=== PATIENT | male | born 1980 | race Caucasian/White ===

== ENCOUNTER → 2019-05-23 15:37 | Outpatient (ROUT) | payer OTHER, MEDICAID, SELFPAY ==
[2019-05-23 16:03] LABS: Add Manual Diff / Slide Review NO; Basophils Absolute Auto 100 /uL (0-100); Basophils Percent Auto 0.6 % (0-2); Eosinophils Absolute Auto 300 /uL (0-450); Eosinophils Percent Auto 2.8 % (2-4); Hematocrit 47.3 % (41-53); Hemoglobin 16.5 g/dL (13.5-17.5); Lymphocytes Absolute Auto 2000 /uL (1100-4500); Lymphocytes Percent Auto 18.7 % (25-40); Mean Corpuscular HGB Conc 34.9 % (30-36); Mean Corpuscular Hemoglobin 33.7 PG (26-34); Mean Corpuscular Volume 96.7 fL (80-100); Monocytes Absolute Auto 500 /uL (0-900); Monocytes Percent Auto 4.9 % (3-14); Neutrophils Absolute Auto 7800 /uL (1500-7000); Platelet Count 242 X10^3/uL (150-400); Red Blood Cell Count 4.89 X10^6/uL (4.5-5.9); Red Cell Distribution Width 14.3 % (11.6-14.8); White Blood Cell Count 10.7 X10^3/uL (4.5-11.0)
[2019-05-23 16:20] LABS: Lithium 0.8 mmol/L (0.6-1.2)
[2019-05-23 16:21] LABS: Alanine Aminotransferase 52 IU/L (21-72); Albumin 4.4 g/dL (3.5-5.0); Albumin Globulin Ratio 1.6 (1.0-2.8); Alkaline Phosphatase 73 U/L (38-126); Aspartate Aminotransferase 49 IU/L (17-59); Bilirubin Total 1.4 mg/dL (0.2-1.3); Blood Urea Nitrogen 9 mg/dL (9-20); Calcium 9.2 mg/dL (8.4-10.2); Carbon Dioxide 26 mmol/L (22-32); Chloride 103 mmol/L (98-107); Cholesterol 179 mg/dL (140-199); Estimated Glomerular Filt Rate > 60.0 mL/min (>60); Globulin 2.8 g/dL (1.7-4.1); Glucose 114 mg/dL (70-100); HDL Cholesterol 34 mg/dL (40-60); HEMOLYSIS < 15 (0-50); LDL Cholesterol Calculated 94 mg/dL (<100); Potassium 3.4 mmol/L (3.4-5.1); Sodium 140 mmol/L (137-145); Total Protein 7.2 g/dL (6.3-8.2); Triglycerides 257 mg/dL (35-150)
== END ==
PROVIDERS: Family Provider Internal Medicine; Visit Provider Internal Medicine
DX: Z00.00 Encounter for general adult medical examination without abnormal findings (principal); F31.9 Bipolar disorder, unspecified
CPT/HCPCS: 80053; 80061; 80178; 84443; 85025

== ENCOUNTER 2020-12-10 08:12 | Emergency (ER) | payer OTHER, MEDICAID, SELFPAY ==
[2020-12-10 08:29] VITALS: BP 171/103; PULSE 118; RESP 20; TEMP 36.7; O2SAT 96
--- NOTE | 2020-12-10 08:46 | ED_ITS ---
HPI - Extremity Injury (Lower) General Chief Complaint: Extremity Injury, Lower Stated Complaint: right foot swelling x7days Time Seen by Provider: 12/10/20 08:20 Source: patient Mode of arrival: Ambulatory Limitations: no limitations History of Present Illness HPI Narrative: Patient is a 40-year-old male here for evaluation of right great toe redness and discomfort and swelling. He states that it started approxi mately 1 week ago. He feels it is potentially somewhat better than when initially started but is certainly not back to normal. He denies any specific trauma. No fevers. Has tried some anti-inflammatories and icing it. Has never had history of gout. Related Data Previous Rx's Medication Instructions Recorded cephalexin 500 mg PO BID 7 Days #14 cap 12/10/20 Allergies Allergy/AdvReac Type Severity Reaction Status Date / Time Penicillins Allergy Verified 12/10/20 08:37 Review of Systems Constitutional Constitutional: Denies fever(s) and Denies headache(s) Eyes Eyes: Denies blurry vision ENT Ears, Nose, Mouth, and Throat: Denies headache(s) Cardiovascular Cardiovascular: Denies chest pain and Denies dyspnea Respiratory Respiratory: Denies dyspnea Gastrointestinal Gastrointestinal: Reports abdominal pain, Denies nausea and Denies vomiting Genitourinary Genitourinary: Denies dysuria Genitourinary: Denies dysuria Musculoskeletal Musculoskeletal: Denies tingling Comments: Right great toe pain Integumentary/Breasts Comments: Redness right great toe Neurologic Neurologic: Denies behavioral changes, Denies headache(s) and Denies tingling Psychiatric Psychiatric: Denies behavioral changes Hematologic/Lymphatic On Anticoagulants: No Allergic/Immunologic Allergic/Immunologic: Denies urticaria Patient History Medical History Patient denies medical problems Social History Smoking Status: Never smoker Smoking Status: Never smoker alcohol intake frequency: 3 or more drinks per day Alcohol type: beer Substance Use Type: marijuana Exam Initial Vital Signs Initial Vital Signs: Vital Signs Temperature 98.0 F 12/10/20 08:29 Pulse Rate 118 H 12/10/20 08:29 Respiratory Rate 20 12/10/20 08:29 Blood Pressure 171/103 H 12/10/20 08:29 Pulse Oximetry 96 12/10/20 08:29 Const General: cooperative and healthy appearing Limitations: mental status not altered HENMT Head: normal to inspection and normocephalic Resp Effort & Inspection: normal respiratory effort Auscultation: clear to auscultation bilaterally Cardio Rate: regular rate Rhythm: regular rhythm Pulses: dorsalis pedis present on the right GI Inspection: non-distended Palpation: soft Skin Other: Redness on the dorsum of the foot encompassing the MTP joint of the right great toe extending to the IP joint and also extending to the midfoot. Neuro General: patient alert and patient awake Cognition: normal cognition Speech: speech normal Extrem General: capillary refill normal Other: Does have tenderness to movement of the MTP joint of the right great toe and also of the 2nd toe. Course Orders Ordered: ED Orders 12/10/20 08:48 XR toe RT min 2V Stat 12/10/20 09:16 C-Reactive Protein Quant Stat Complete Blood Count AUTO DIFF Stat Comprehensive Metabolic Panel Stat Erythrocyte Sedimentation Rate Stat Uric Acid Stat Vital Signs Vital signs: Vital Signs - 8 hr 12/10/20 08:29 Temperature 98.0 F Pulse Rate 118 H Respiratory Rate 20 Blood Pressure 171/103 H Pulse Oximetry 96 MDM - Extremity Injury (Lower) Lab Data Attestation: I reviewed the patient's lab results. Result diagrams: 12/10/20 09:16 12/10/20 09:16 Labs: Lab Results 12/10/20 12/10/20 12/10/20 Range/Units 09:16 09:16 09:16 WBC 12.2 H (4.5-11.0) X10^3/uL RBC 4.87 (4.5-5.9) X10^6/uL Hgb 16.6 (13.5-17.5) g/dL Hct 47.1 (41-53) % MCV 96.8 (80-100) fL MCH 34.1 H (26-34) PG MCHC 35.2 (30-36) % RDW 13.4 (11.6-14.8) % Plt Count 272 (150-400) X10^3/uL Neut % (Auto) 77.5 H (50-75) % Lymph % (Auto) 14.0 L (25-40) % [place] % (Auto) 4.7 (3-14) % Eos % (Auto) 3.0 (2-4) % Baso % (Auto) 0.8 (0-2) % Neut # (Auto) 9500 H (7694-2084) /uL Lymph # (Auto) 1700 (6505-2949) /uL [place] # (Auto) 600 (0-900) /uL Eos # (Auto) 400 (0-450) /uL Baso # (Auto) 100 (0-100) /uL ESR 41 H (0-15) MM/HR Sodium 138 (137-145) mmol/L Potassium 3.2 L (3.4-5.1) mmol/L Chloride 102 (98-107) mmol/L Carbon Dioxide 21 L (22-32) mmol/L BUN 4 L (9-20) mg/dL Creatinine 0.72 (0.66-1.25) mg/dL Estimated GFR > 60.0 (>60) mL/min BUN/Creatinine Ratio 5.6 L (6-22) Glucose 166 H (70-100) mg/dL Uric Acid 8.3 Cancelled (3.5-8.5) mg/dL Calcium 8.8 (8.4-10.2) mg/dL Total Bilirubin 0.7 (0.2-1.3) mg/dL AST 51 (17-59) IU/L ALT 44 (<50) IU/L Alkaline Phosphatase 70 (38-126) U/L C-Reactive Protein 3.0 H (<1.0) mg/dL Total Protein 7.6 (6.3-8.2) g/dL Albumin 4.4 (3.5-5.0) g/dL Globulin 3.2 (1.7-4.1) g/dL Albumin/Globulin Ratio 1.4 (1.0-2.8) Imaging Data Extremity x-ray #1: Radiologist's Impression: [address] [id number] ReportSigned Patient: Raman Anderson [facility]#: [id number]: 1980Acct:[id number]/Sex: 40 / MDate of Service: 12/10/20Loc: E DAccession Number: [id number] Procedure: XR toe RT min 2V Ordering Provider: Kenrick Moore D.O. PROCEDURE: XR TOE RT MIN 2V INDICATIONS: R great toe MTP redness TECHNIQUE: 3 views of the great toe(s) acquired. COMPARISON: None. FINDINGS: Bones: No fractures or dislocations. No suspicious bony lesions. Age- appropriate bony degenerative changes are seen. Incidental note is made of an accessory ossicle, an os tibiale externum. Soft tissues: No suspicious soft tissue densities. IMPRESSION: No significant bony abnormality can be seen to suggest osteomyelitis. If there is strong suspicion for developing osteomyelitis, please consider a dedicated MRI without and with contrast for further evaluation (assuming that there is no contraindication to MRI). Dictated by: Demario Rivas M.D. on 12/10/2020 at 8:16 Approved by: Demario Rivas M.D. on 12/10/2020 at 8:18 MDM Narrative Medical decision making narrative: Patient is nontoxic appearing. He is neurov ascularly intact. Has redness that is isolated to the medial dorsum of his left foot. It is warm to the touch. He has never had gout in the past. His uric acid is normal. His x-ray shows no signs of fractures. I do have low suspicion of a septic joint given his presentation today. Given his normal uric acid and lack of trauma this does leave a higher concern for cellulitis. The skin over t op the area of the being read shows no signs of abscess. He was tachycardic and does have a leukocytosis which could be secondary to gout or cellulitis however again he is very nontoxic appearing and is tolerating oral intake. The redness was outlined. Will place him on antibiotics. He was given strict return precautions. He expressed understanding and agreement. Discharge Plan Departure Patient Disposition: Home Clinical Impression: Cellulitis Instructions: DI for Cellulitis -- Adult Activity Restrictions/Additional Instructions: Given your labs today have a higher suspicion for a skin infection called cellulitis rather than gout. Because of this I think we have to start you on a ntibiotics. A prescription was sent to the pharmacy of your choice. You can shower like normal. Can take anti-inflammatories for discomfort. Contact your primary provider for follow-up. Return to the emergency department for any new or worsening symptoms Prescriptions: New cephalexin 500 mg capsule 500 mg PO BID 7 Days Qty: 14 RF: 0 Referrals: Adrian Pedroza MD [Primary Care Provider] -
[2020-12-10 09:33] LABS: Add Manual Diff / Slide Review NO; Basophils Absolute Auto 100 /uL (0-100); Basophils Percent Auto 0.8 % (0-2); Eosinophils Absolute Auto 400 /uL (0-450); Hematocrit 47.1 % (41-53); Hemoglobin 16.6 g/dL (13.5-17.5); Lymphocytes Absolute Auto 1700 /uL (1100-4500); Mean Corpuscular HGB Conc 35.2 % (30-36); Mean Corpuscular Hemoglobin 34.1 PG (26-34); Mean Corpuscular Volume 96.8 fL (80-100); Monocytes Absolute Auto 600 /uL (0-900); Monocytes Percent Auto 4.7 % (3-14); Neutrophils Absolute Auto 9500 /uL (1500-7000); Neutrophils Percent Auto 77.5 % (50-75); Platelet Count 272 X10^3/uL (150-400); Red Blood Cell Count 4.87 X10^6/uL (4.5-5.9); Red Cell Distribution Width 13.4 % (11.6-14.8); White Blood Cell Count 12.2 X10^3/uL (4.5-11.0)
[2020-12-10 09:39] LABS: Alanine Aminotransferase 44 IU/L (<50); Albumin 4.4 g/dL (3.5-5.0); Albumin Globulin Ratio 1.4 (1.0-2.8); Alkaline Phosphatase 70 U/L (38-126); Aspartate Aminotransferase 51 IU/L (17-59); BUN Creatinine Ratio 5.6 (6-22); Bilirubin Total 0.7 mg/dL (0.2-1.3); Blood Urea Nitrogen 4 mg/dL (9-20); Calcium 8.8 mg/dL (8.4-10.2); Carbon Dioxide 21 mmol/L (22-32); Chloride 102 mmol/L (98-107); Estimated Glomerular Filt Rate > 60.0 mL/min (>60); Globulin 3.2 g/dL (1.7-4.1); Glucose 166 mg/dL (70-100); HEMOLYSIS 26 (0-50); Potassium 3.2 mmol/L (3.4-5.1); Sodium 138 mmol/L (137-145); Total Protein 7.6 g/dL (6.3-8.2); Uric Acid 8.3 mg/dL (3.5-8.5)
[2020-12-10 09:50] LABS: Erythrocyte Sedimentation Rate 41 MM/HR (0-15)
[2020-12-10 10:34] VITALS: BP 158/100; PULSE 92; RESP 14; O2SAT 98
== END 2020-12-10 10:38 | disposition home or self-care (01) ==
PROVIDERS: Emergency Provider Emergency Medicine; Family Provider Internal Medicine; PCP Internal Medicine
DX: L03.031 Cellulitis of right toe (principal); R10.9 Unspecified abdominal pain
CPT/HCPCS: 36415; 73660; 80053; 84550; 85025; 85651; 86140; 99283; 99284

== ENCOUNTER → 2022-09-29 11:21 | Outpatient (CLI) | payer OTHER, MEDICAID, SELFPAY ==
[2022-09-29 12:44] LABS: Hematocrit 42.7 % (41-53); Mean Corpuscular HGB Conc 35.1 % (30-36); Mean Corpuscular Hemoglobin 34.8 PG (26-34); Mean Corpuscular Volume 99.1 fL (80-100); Platelet Count 282 X10^3/uL (150-400); Red Blood Cell Count 4.31 X10^6/uL (4.5-5.9); Red Cell Distribution Width 13.8 % (11.6-14.8)
[2022-09-29 13:38] LABS: Alanine Aminotransferase 41 IU/L (<50); Albumin 4.4 g/dL (3.5-5.0); Albumin Globulin Ratio 1.1 (1.0-2.8); Alkaline Phosphatase 91 U/L (38-126); Aspartate Aminotransferase 91 IU/L (17-59); BUN Creatinine Ratio 8.2 (6-22); Bilirubin Total 1.4 mg/dL (0.2-1.3); Blood Urea Nitrogen 6 mg/dL (9-20); Carbon Dioxide 20 mmol/L (22-32); Chloride 92 mmol/L (98-107); Cholesterol 238 mg/dL (140-199); Estimated Glomerular Filt Rate > 60 mL/min (>60); Glucose 391 mg/dL (70-100); HDL Cholesterol 34 mg/dL (40-60); HEMOLYSIS < 15 (0-50); LDL Cholesterol Calculated 139 mg/dL (<100); Potassium 2.9 mmol/L (3.4-5.1); Sodium 133 mmol/L (137-145); Total Protein 8.4 g/dL (6.3-8.2); Triglycerides 323 mg/dL (35-150)
[2022-09-29 13:44] LABS: Lithium < 0.2 mmol/L (0.6-1.2)
[2022-09-29 14:06] LABS: TSH w/ Reflex to FT4 3.51 uIU/mL (0.47-4.68)
[2022-09-29 16:29] LABS: Hemoglobin A1C% w Est Avg Glu 8.4 % (4.0-6.0)
== END ==
PROVIDERS: Family Provider Internal Medicine; PCP Internal Medicine; Referring Provider Internal Medicine; Visit Provider Internal Medicine
DX: Z00.00 Encounter for general adult medical examination without abnormal findings (principal); F31.9 Bipolar disorder, unspecified; I10 Essential (primary) hypertension; R73.9 Hyperglycemia, unspecified
CPT/HCPCS: 36415; 80053; 80061; 80178; 83036; 84443; 85027

== ENCOUNTER → 2022-12-30 09:23 | Outpatient (CLI) | payer OTHER, MEDICAID, SELFPAY ==
[2022-12-30 10:24] LABS: Alanine Aminotransferase 29 IU/L (<50); Albumin 3.9 g/dL (3.5-5.0); Albumin Globulin Ratio 1.1 (1.0-2.8); Alkaline Phosphatase 114 U/L (38-126); Amylase 48 U/L (30-110); Aspartate Aminotransferase 104 IU/L (17-59); BUN Creatinine Ratio 5.9 (6-22); Bilirubin Total 1.9 mg/dL (0.2-1.3); Blood Urea Nitrogen 4 mg/dL (9-20); Calcium 7.6 mg/dL (8.4-10.2); Carbon Dioxide 29 mmol/L (22-32); Chloride 95 mmol/L (98-107); Estimated Glomerular Filt Rate > 60 mL/min (>60); Globulin 3.7 g/dL (1.7-4.1); Glucose 151 mg/dL (70-100); HEMOLYSIS < 15 (0-50); Lipase 272 U/L (23-300); Sodium 133 mmol/L (137-145); Total Protein 7.6 g/dL (6.3-8.2)
[2022-12-30 10:45] LABS: Potassium 2.6 mmol/L (3.4-5.1)
[2022-12-30 10:55] LABS: Hemoglobin 12.8 g/dL (13.5-17.5); Mean Corpuscular HGB Conc 35.5 % (30-36); Mean Corpuscular Hemoglobin 37.4 PG (26-34); Mean Corpuscular Volume 105.5 fL (80-100); Platelet Count 317 X10^3/uL (150-400); Red Blood Cell Count 3.41 X10^6/uL (4.5-5.9); White Blood Cell Count 11.7 X10^3/uL (4.5-11.0)
[2022-12-31 05:47] LABS: x Labcorp Estim. Avg Glu (eAG) 148 mg/dL (.); x Labcorp Hemoglobin A1c 6.8 % (4.8-5.6)
== END ==
PROVIDERS: Family Provider Internal Medicine; PCP Internal Medicine; Referring Provider Internal Medicine; Visit Provider Internal Medicine
DX: E11.69 Type 2 diabetes mellitus with other specified complication (principal); E78.5 Hyperlipidemia, unspecified; R10.9 Unspecified abdominal pain; R19.7 Diarrhea, unspecified
CPT/HCPCS: 36415; 80053; 82150; 83036; 83690; 85027

== ENCOUNTER → 2023-01-04 10:53 | Outpatient (CLI) | payer OTHER, MEDICAID, SELFPAY ==
--- NOTE | 2023-01-04 17:43 | DIAB.INIT ---
Initial Diabetes Education Assessment Name: Raman Anderson Date: 01/04/23 Time: -5882t Dx: Type II Diabetes Provider: Yovany Odenjay presents today for initial Dm visit. Newly diagnosed since September with HgA1c of 8.4% at the time. Down to 6.8% this month, likely r/t reported 20# weight loss as a result of n/v associated with ETOH use. Raman reports 9-18 servings of ETOH per day. States he has received IP care for ETOH in his 20s. He was then sober fro 15 years. Then picked up drinking with a girlfriend, who has since passed. States he has been drinking this way for about 6 years. Not eating much over the last several weeks due to n/v symptoms. Diet recall indicates one meal per day at most, usually salad or processed vegetarian option (veggie meat/frozen products). Sometimes a piece of cheese during the day. Does not feel confident that he can reduce ETOH intake without IP care. Plans to call [facility] as rec by provider. States he is not sure if he can make lifestyle changes to help with DM while managing ETOHism. 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 Provided appropriate educational handouts. Discussed the following topics: Reviewed A1c in brief and goal A1c Discussed small meal/snack ideas easy on the GI to help increase intake Options for protein shake to help with nutritional status Potential supplements to help with nutritional status: MVI, vit c, b vitamins Impact of ETOH on GI and nutritional status and neuropathy Plate Method Impact of ETOH on DM and BG Created SMART goals for patient self-care and success. Goals: Call [facility] Aim for at last 2 eating occurrences per day Check out protein shakes [facility]. Raman seems to need to manage his ETOHism before managing DM. He reports feeling unprepared to manage DM at this time due to ETOH intake. Plans to call for IP care this week. Provided my contact information and encouraged him to contact DM education for follow-up after managing ETOHism. Corrie Roberts RDN, [facility] Certified Diabetes Care and Spool Salvager P: [phone] Thank you for this referral
== END ==
PROVIDERS: Family Provider Internal Medicine; PCP Internal Medicine; Referring Provider Internal Medicine; Visit Provider Internal Medicine
DX: E11.9 Type 2 diabetes mellitus without complications (principal); E78.5 Hyperlipidemia, unspecified; Z71.3 Dietary counseling and surveillance
CPT/HCPCS: G0108

== ENCOUNTER 2023-06-07 12:14 | Emergency (ER) | payer OTHER, MEDICAID, SELFPAY ==
[2023-06-07 12:31] VITALS: BP 148/102; PULSE 96; RESP 16; TEMP 37.3; O2SAT 98; BMI 30.1
--- NOTE | 2023-06-07 13:36 | DI.RAD.S_ITS ---
PROCEDURE: XR CHEST 1V INDICATIONS: suspected sepsis TECHNIQUE: One view of the chest was acquired. COMPARISON: [facility], , CHEST 2 VIEW, 03/21/2017, 15:53. FINDINGS: Surgical changes and devices: None. Lungs and pleura: Lungs are clear. No pleural effusions or pneumothorax. Mediastinum: Mediastinal contours appear normal. Heart size is normal. Bones and chest wall: No suspicious bony lesions. Overlying soft tissues appear unremarkable. IMPRESSION: No acute cardiopulmonary process. Dictated by: Allen Fulton M.D. on 06/07/2023 at 14:17 Approved by: Allen Fulton M.D. on 06/07/2023 at 14:18
[2023-06-07 13:56] LABS: Add Manual Diff / Slide Review NO; Basophils Absolute Auto 100 /uL (0-100); Basophils Percent Auto 0.6 % (0-2); Eosinophils Absolute Auto 800 /uL (0-450); Eosinophils Percent Auto 6.3 % (2-4); Hematocrit 36.7 % (41-53); Hemoglobin 12.6 g/dL (13.5-17.5); Lymphocytes Absolute Auto 1500 /uL (1100-4500); Lymphocytes Percent Auto 12.2 % (25-40); Mean Corpuscular HGB Conc 34.2 % (30-36); Mean Corpuscular Hemoglobin 35.9 PG (26-34); Mean Corpuscular Volume 105.1 fL (80-100); Monocytes Absolute Auto 400 /uL (0-900); Monocytes Percent Auto 3.3 % (3-14); Neutrophils Absolute Auto 9600 /uL (1500-7000); Neutrophils Percent Auto 77.6 % (50-75); Platelet Count 391 X10^3/uL (150-400); Red Blood Cell Count 3.49 X10^6/uL (4.5-5.9); Red Cell Distribution Width 15.7 % (11.6-14.8); White Blood Cell Count 12.3 X10^3/uL (4.5-11.0)
[2023-06-07 14:07] LABS: INR 1.3 (0.9-1.3); Prothrombin Time 14.7 SECONDS (10.1-12.7)
[2023-06-07 14:08] VITALS: PULSE 102; O2SAT 98
[2023-06-07 14:11] VITALS: BP 151/95; PULSE 101; RESP 17; O2SAT 98
[2023-06-07 14:12] LABS: Alanine Aminotransferase 32 IU/L (<50); Albumin 4.5 g/dL (3.5-5.0); Alkaline Phosphatase 99 U/L (38-126); Aspartate Aminotransferase 46 IU/L (17-59); Bilirubin Total 1.1 mg/dL (0.2-1.3); Blood Urea Nitrogen 16 mg/dL (9-20); Calcium 10.3 mg/dL (8.4-10.2); Carbon Dioxide 22 mmol/L (22-32); Chloride 106 mmol/L (98-107); Estimated Glomerular Filt Rate > 60 mL/min (>60); Globulin 4.3 g/dL (1.7-4.1); Glucose 118 mg/dL (70-100); HEMOLYSIS 24 (0-50); Lipase 314 U/L (23-300); Sodium 137 mmol/L (137-145); Total Protein 8.8 g/dL (6.3-8.2)
[2023-06-07 14:13] LABS: Lactate (Lactic Acid) 0.7 mmol/L (0.7-2.1)
--- NOTE | 2023-06-07 14:23 | DI.US.S_ITS ---
PROCEDURE: US PERIPH VENOUS LOW EXTREM BI INDICATIONS: EDEMA TECHNIQUE: Real-time imaging, as well as color and pulse Doppler interrogation, were performed of the deep veins of both legs from the inguinal ligament to the popliteal fossa, with documentation of the visualized calf veins. COMPARISON: None. FINDINGS: Right: The common femoral, femoral, popliteal, and the visualized calf veins are normally compressible, and free of intraluminal thrombus. Color and pulse Doppler demonstrate normal phasic intravascular flow. There is normal augmentation response to distal compression maneuver. Left: The common femoral, femoral, popliteal, and the visualized calf veins are normally compressible, and free of intraluminal thrombus. Color and pulse Doppler demonstrate normal phasic intravascular flow. There is normal augmentation response to distal compression maneuver. IMPRESSION: No findings of deep venous thrombosis in either lower extremity. Dictated by: Garrett Clifton M.D. on 06/07/2023 at 15:41 Approved by: Garrett Clifton M.D. on 06/07/2023 at 15:41
[2023-06-07 14:24] LABS: PTT Partial Thromboplastin Tim 35 SECONDS (26-36)
--- NOTE | 2023-06-07 14:26 | ED.EXTPRO ---
HPI - Extremity Problem General Chief complaint: Extremity Problem,Nontraumatic Stated complaint: edema reappeared/feet swollen/red streaks on feet Time Seen by Provider: 06/07/23 13:54 Source: patient Mode of arrival: Ambulatory History of Present Illness HPI Narrative: 42 year old male with history of bipolar 1, alcohol use disorder (sober since 05/10/23), psoriasis prsents for swelling and burning in his bilateral feet. States that he was recently hospitalized at [facility] for an infected cyst on his L jaw. He states that this was lanced by an ENT doctor and he was discharged on antibiotics. The neck swelling is still present, but patient states it is much improved when when it started and he is taking his antibiotics. He is concerned because his feet sting and burn and there is trace swelling aroudn the ankles. He thinks it is neuropathy from alcohol use. He has had burning and stinging previously, but never this bad. Related Data Home Medications Medication Instructions Recorded Confirmed mirtazapine 45 mg tablet 45 mg PO BEDTIME 01/13/23 04/28/23 Previous Rx's Medication Instructions Recorded amlodipine 5 mg tablet 5 mg PO DAILY #90 tabs 05/26/22 clobetasol 0.05 % topical cream 1 applic topical BID #60 grams 05/26/22 metformin 500 mg tablet 500 mg PO BID #180 tabs 10/04/22 lithium carbonate 300 mg 600 mg (2 x 300 mg) PO BID #120 12/30/22 tablet,extended release tabs potassium chloride 10 mEq 20 meq (2 x 10 mEq) PO TID low 12/30/22 tablet,extended release potassium #18 tabs zolpidem 10 mg tablet 10 mg PO BEDTIME PRN insomnia #90 04/14/23 tabs dextroamphetamine-amphetamine 30 30 mg PO BID #60 tabs 04/28/23 mg tablet (Adderall) dextroamphetamine-amphetamine 30 30 mg PO BID #60 tabs 04/28/23 mg tablet (Adderall) dextroamphetamine-amphetamine 30 30 mg PO BID #60 tabs 04/28/23 mg tablet (Adderall) clonazepam 1 mg tablet 1 mg PO TID #90 tabs 05/11/23 gabapentin 300 mg capsule 300 mg PO TID #90 caps 06/07/23 Allergies Allergy/AdvReac Type Severity Reaction Status Date / Time Penicillins Allergy Verified 06/07/23 12:42 Review of Systems Review of Systems Narrative: Negative except as noted above Patient History Medical History ADD (attention 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) Alcohol use disorder Bipolar 1 disorder (~2001) Chronic insomnia DM type 2 with diabetic dyslipidemia Essential hypertension Generalized anxiety disorder Gout Obesity (BMI 30.0-34.9) Patient denies medical problems Plaque psoriasis (~2017) Social History Smoking Status: Former smoker Smoking Status: Former smoker alcohol intake frequency: 3 or more drinks per day Alcohol type: beer Substance Use Type: former substance user Exam Narrative Exam Narrative: Const: Awake, alert, appears chronically unwell, significantly older than stated age Eyes: PERRL, EOMI, conjunctiva normal ENT: Atraumatic, dentition normal, mucous membranes moist Cardiac: regular rate, regular rhythm RESP: unlabored, clear bilaterally, no wheezing GI: Atraumatic, soft, nontender, nondistended, no rebound, no guarding MSK: Atraumatic, full range of motion, pulses equal Skin: Warm, Dry, extensive psoriatic rash over legs, arms, face. No excessive warmth, no fluctuance Neuro: AO x3, CN II-XII grossly intact, moves all extremities, hyperalgesia dorsum of feet bilaterally Psych: affect normal, mood normal, not suicidal, not homicidal Initial Vital Signs Initial Vital Signs: Vital Signs Temperature 99.2 F 06/07/23 12:31 Pulse Rate 96 H 06/07/23 12:31 Respiratory Rate 16 06/07/23 12:31 Blood Pressure 148/102 H 06/07/23 12:31 Pulse Oximetry 98 06/07/23 12:31 Oxygen Delivery Method Room Air 06/07/23 12:31 Course Course Course Narrative: Chronically unwell appearing but not acutely toxic patient presenting for bilateral foot pain and swelling. There is trace nonpitting edema to his bilateral lower extremities, but no obvious swelling. He is extensive psoriatic rash on all of his extremities and this appears to extend to the feet as well. Patient's description of the pain as well as his history of chronic alcohol abuse is suggestive of alcoholic neuropathy. His abscess on the neck is still present, but per the patient is healing very well and is much improved from initial presentation to outside emergency department. Orders Ordered: Discontinued Medications Gabapentin (Gabapentin 300 Mg Capsule) 300 mg PO NOW ONE Stop: 06/07/23 15:52 Last Admin: 06/07/23 15:58 Dose: 300 mg Documented By: AMV Lorazepam (Lorazepam 0.5 Mg Tablet) 0.5 mg PO NOW ONE Stop: 06/07/23 15:52 Last Admin: 06/07/23 15:58 Dose: 0.5 mg Documented By: AMV Ondansetron HCl (Ondansetron 4 Mg/2 Ml Inj) 4 mg IV NOW PRN PRN Reason: Nausea And Vomiting Ondansetron HCl (Ondansetron 4 Mg Odt) 4 mg SL NOW PRN PRN Reason: Nausea And Vomiting Reevaluation(s) Reevaluation #1: Laboratory work is reviewed, mild leukocytosis, however he does have the abscess in his currently on antibiotics. Other lab work negative for significant abnormalities. Ultrasound imaging negative for DVT. Patient counseled on likely diagnosis, plan to discharge with gabapentin and close PCP follow up. Encouraged to continue his sobriety. ED return precautions discussed at bedside. Patient expressed understanding of the plan and is in agreement at this time. All questions answered at the time of discharge. Vital Signs Vital signs: Vital Signs - 8 hr 06/07/23 12:31 06/07/23 14:08 06/07/23 14:11 Temperature 99.2 F Pulse Rate 96 H 102 H 101 H Respiratory Rate 16 17 Blood Pressure 148/102 H Pulse Oximetry 98 98 98 Oxygen Delivery Method Room Air 06/07/23 14:11 06/07/23 14:30 06/07/23 14:30 Temperature Pulse Rate 99 H Respiratory Rate 21 Blood Pressure 151/95 H 149/89 H Pulse Oximetry 97 Oxygen Delivery Method 06/07/23 15:00 06/07/23 15:00 06/07/23 15:30 Temperature Pulse Rate 99 H 100 H Respiratory Rate 28 H Blood Pressure 161/106 H Pulse Oximetry 97 97 Oxygen Delivery Method 06/07/23 15:30 Temperature Pulse Rate Respiratory Rate Blood Pressure 190/110 H Pulse Oximetry Oxygen Delivery Method MDM - Extremity (Nontraumatic) Differential Diagnosis Differential diagnosis: Likely gout, lower extremity edema and deep vein thrombosis of lower extremity Lab Data 06/07/23 13:45 06/07/23 13:45 Labs: Lab Results 06/07/23 06/07/23 Range/Units 13:45 14:24 WBC 12.3 H (4.5-11.0) X10^3/uL RBC 3.49 L (4.5-5.9) X10^6/uL Hgb 12.6 L (13.5-17.5) g/dL Hct 36.7 L (41-53) % MCV 105.1 H (80-100) fL MCH 35.9 H (26-34) PG MCHC 34.2 (30-36) % RDW 15.7 H (11.6-14.8) % Plt Count 391 (150-400) X10^3/uL Neut % (Auto) 77.6 H (50-75) % Lymph % (Auto) 12.2 L (25-40) % [place] % (Auto) 3.3 (3-14) % Eos % (Auto) 6.3 H (2-4) % Baso % (Auto) 0.6 (0-2) % Neut # (Auto) 9600 H (8136-0316) /uL Lymph # (Auto) 1500 (7618-7396) /uL [place] # (Auto) 400 (0-900) /uL Eos # (Auto) 800 H (0-450) /uL Baso # (Auto) 100 (0-100) /uL PT 14.7 H (10.1-12.7) SECONDS INR 1.3 (0.9-1.3) APTT 35 (26-36) SECONDS Sodium 137 (137-145) mmol/L Potassium 4.0 (3.4-5.1) mmol/L Chloride 106 (98-107) mmol/L Carbon Dioxide 22 (22-32) mmol/L BUN 16 (9-20) mg/dL Creatinine 0.80 (0.66-1.25) mg/dL Estimated GFR > 60 (>60) mL/min BUN/Creatinine Ratio 20.0 (6-22) Glucose 118 H (70-100) mg/dL Lactate 0.7 (0.7-2.1) mmol/L Calcium 10.3 H (8.4-10.2) mg/dL Magnesium 2.0 (1.6-2.3) mg/dL Total Bilirubin 1.1 (0.2-1.3) mg/dL AST 46 (17-59) IU/L ALT 32 (<50) IU/L Alkaline Phosphatase 99 (38-126) U/L Total Protein 8.8 H (6.3-8.2) g/dL Albumin 4.5 (3.5-5.0) g/dL Globulin 4.3 H (1.7-4.1) g/dL Albumin/Globulin Ratio 1.0 (1.0-2.8) Lipase 314 H (23-300) U/L Procalcitonin 0.18 (<0.5) ng/mL Discharge Plan Departure Patient Disposition: Home Clinical Impression: Neuropathic pain of both feet Instructions: DI for Peripheral Neuropathy Activity Restrictions/Additional Instructions: KEEP UP THE GOOD WORK ON BECOMING SOBER! TAKE ALL OF YOUR ANTIBIOTICS PRESCRIBED. GABAPENTIN MAY HELP THE STINGING SENSATION YOU FEEL IN YOUR FEET. THIS IS LIKELY SECONDARY TO NEUROPATHY. I HIGHLY RECOMMEND FOLLOWING UP WITH YOUR PRIMARY CARE DOCTOR. Prescriptions: New gabapentin 300 mg capsule 300 mg PO TID Qty: 90 0RF No Action potassium chloride 10 mEq tablet extended release 20 meq PO TID Qty: 18 0RF Rx Instructions: Potassium chloride 10mEq 2 tablets TID x 3 days zolpidem 10 mg tablet 10 mg PO BEDTIME PRN (Reason: insomnia) Qty: 90 0RF clonazepam 1 mg tablet 1 mg PO TID Qty: 90 0RF metformin 500 mg tablet 500 mg PO BID Qty: 180 3RF amlodipine 5 mg tablet 5 mg PO DAILY Qty: 90 3RF clobetasol 0.05 % cream 1 applic topical BID Qty: 60 5RF lithium carbonate 300 mg tablet extended release 600 mg PO BID Qty: 120 5RF mirtazapine 45 mg tablet 45 mg PO BEDTIME dextroamphetamine-amphetamine [Adderall] 30 mg tablet 30 mg PO BID Qty: 60 0RF Rx Instructions: administer doses at least 4-6 hours apart dextroamphetamine-amphetamine [Adderall] 30 mg tablet 30 mg PO BID Qty: 60 0RF Rx Instructions: administer doses at least 4-6 hours apart dextroamphetamine-amphetamine [Adderall] 30 mg tablet 30 mg PO BID Qty: 60 0RF Rx Instructions: administer doses at least 4-6 hours apart Referrals: Adrian Pedroza MD [Primary Care Provider] - Stand Alone Forms: Patient Portal/API
[2023-06-07 14:29] LABS: Procalcitonin 0.18 ng/mL (<0.5)
[2023-06-07 14:30] VITALS: BP 149/89; PULSE 99; RESP 21; O2SAT 97
[2023-06-07 15:00] VITALS: BP 161/106; PULSE 99; O2SAT 97
[2023-06-07 15:30] VITALS: BP 190/110; PULSE 100; RESP 28; O2SAT 97
[2023-06-07] MEDS: LORazepam 0.5 MG TABLET PO (15:58)
[2023-06-07] MEDS: GABAPENTIN 300 MG CAPSULE PO (15:58)
== END 2023-06-07 16:14 | disposition home or self-care (01) ==
PROVIDERS: Emergency Provider Emergency Medicine; Family Provider Internal Medicine; PCP Internal Medicine
DX: G57.93 Unspecified mononeuropathy of bilateral lower limbs (principal); R79.89 Other specified abnormal findings of blood chemistry
CPT/HCPCS: 36415; 71045; 80053; 83605; 83690; 83735; 84145; 85025; 85610; 85730; 87040; 93005; 93970; 99284

== ENCOUNTER 2023-06-16 09:08 | Emergency (ER) | payer OTHER, MEDICAID, SELFPAY ==
[2023-06-16] VITALS (31 sets, daily range): BP systolic 137–163; BP diastolic 77–114; PULSE 85–118; RESP 16–27; TEMP 36.4–36.8; O2SAT 94–98; BMI 30.1
--- NOTE | 2023-06-16 10:02 | DI.RAD.S_ITS ---
PROCEDURE: XR CHEST 1V INDICATIONS: suspected sepsis TECHNIQUE: One view of the chest was acquired. COMPARISON: [facility], [place], XR CHEST 1V, 06/07/2023, 13:49. [facility], [place], CHEST 2 VIEW, 03/21/2017, 15:53. FINDINGS: Surgical changes and devices: None. Lungs and pleura: Lungs are clear. No pleural effusions or pneumothorax. Mediastinum: Mediastinal contours appear normal. Heart size is normal. Bones and chest wall: No suspicious bony lesions. Overlying soft tissues appear unremarkable. IMPRESSION: No acute cardiopulmonary process. Dictated by: Allen Fulton M.D. on 06/16/2023 at 10:21 Approved by: Allen Fulton M.D. on 06/16/2023 at 10:23
[2023-06-16] MEDS: SODIUM CHLORIDE 0.9% 1,000 ML 1000 ML IV ×2 (10:45→17:04)
[2023-06-16 10:53] LABS: INR 1.4 (0.9-1.3); Prothrombin Time 15.8 SECONDS (10.1-12.7)
[2023-06-16 10:55] LABS: Alanine Aminotransferase 23 IU/L (<50); Albumin 4.3 g/dL (3.5-5.0); Alkaline Phosphatase 112 U/L (38-126); Aspartate Aminotransferase 39 IU/L (17-59); BUN Creatinine Ratio 6.8 (6-22); Blood Urea Nitrogen 5 mg/dL (9-20); Calcium 9.6 mg/dL (8.4-10.2); Carbon Dioxide 28 mmol/L (22-32); Chloride 97 mmol/L (98-107); Estimated Glomerular Filt Rate > 60 mL/min (>60); Globulin 4.1 g/dL (1.7-4.1); Glucose 130 mg/dL (70-100); HEMOLYSIS < 15 (0-50); Lipase 201 U/L (23-300); PTT Partial Thromboplastin Tim 35 SECONDS (26-36); Sodium 135 mmol/L (137-145); Total Protein 8.4 g/dL (6.3-8.2)
[2023-06-16 11:02] LABS: Potassium 2.7 mmol/L (3.4-5.1)
[2023-06-16 11:07] LABS: Add Manual Diff / Slide Review NO; Basophils Absolute Auto 100 /uL (0-100); Basophils Percent Auto 1.1 % (0-2); Eosinophils Absolute Auto 200 /uL (0-450); Eosinophils Percent Auto 2.1 % (2-4); Hematocrit 42.9 % (41-53); Lymphocytes Absolute Auto 1600 /uL (1100-4500); Lymphocytes Percent Auto 13.1 % (25-40); Mean Corpuscular HGB Conc 34.8 % (30-36); Mean Corpuscular Hemoglobin 34.4 PG (26-34); Mean Corpuscular Volume 98.8 fL (80-100); Monocytes Absolute Auto 400 /uL (0-900); Monocytes Percent Auto 3.1 % (3-14); Neutrophils Absolute Auto 9600 /uL (1500-7000); Neutrophils Percent Auto 80.6 % (50-75); Platelet Count 296 X10^3/uL (150-400); Red Blood Cell Count 4.35 X10^6/uL (4.5-5.9); Red Cell Distribution Width 14.8 % (11.6-14.8); White Blood Cell Count 11.9 X10^3/uL (4.5-11.0)
[2023-06-16 11:12] LABS: Procalcitonin 0.12 ng/mL (<0.5)
--- NOTE | 2023-06-16 11:15 | PC.NURSE ---
Patient presents for bilateral leg pain which he believes is cellulitis due to history of cellulitis. Pt has psoriasis and redness on his legs. Pt does have a surgical incision on his left neck behind his ear, which was due to a surgical incision to drain an abscess on 06/02/23. He states his neck does not hurt him. Pt was prescribed antibiotics which he should have finished by now, but he still has a few that he hasent taken. He is a poor historian, has not been taking any daily medications the past week, is not sure what medications he is actually supposed to take, and was recently at alcohol rehab in [place] before his surgical abscess draining. Pt states he was transferred from alcohol rehab to the ER on 06/02 and his bed at the rehab facility had given his bed away. Pt reports drinking 3x 16oz malt liquors daily the past few days. Pt appears unwell and unkept. He was also surprised about his open surgical site behind his ear looking infected. Pt told me his lives in a house with his 11 year old son who is currently at school. I inquired where his son was during his alcohol rehab admission, patient responded that his son was staying with his grandparents.
--- NOTE | 2023-06-16 11:31 | ED_ITS ---
HPI - Skin/Abscess/Foreign Bdy General Chief complaint: Skin/Abscess/Foreign Body Stated complaint: celulitis in feet Time Seen by Provider: 06/16/23 11:20 Source: patient Mode of arrival: Ambulatory History of Present Illness HPI narrative: Patient for multiple complaints. Chiefly he has pain to both feet that has been ongoing for over a month. He was seen here June 07 for this. Diagnosed with neuropathy of the feet. He did see his primary care June 14, 2003 for follow up. No new treatment was done. Last night he noticed bilateral papular rash to the entire leg and feet. No history of syphilis or chancre. Patient has history of left mandible abscess incision drainage May 01 he states in [place]. He stayed there for 4 days and discharged home. He does not know any type of instructions that were given to him for wound care or why he had the surgery or what was the diagnosis. Patient is very poor historian. He does have psoriasis. He does not have 1 falling him for that he states. He uses a cream. No fever or chills Related Data Home Medications Medication Instructions Recorded Confirmed mirtazapine 45 mg tablet 45 mg PO BEDTIME 01/13/23 06/14/23 levothyroxine 50 mcg tablet 50 mcg PO DAILY 06/14/23 06/14/23 losartan 25 mg tablet 25 mg PO DAILY 06/14/23 06/14/23 spironolactone 50 mg tablet 50 mg PO DAILY 06/14/23 06/14/23 thiamine HCl (vitamin B1) 100 mg 100 mg PO DAILY 06/14/23 06/14/23 tablet trazodone 50 mg tablet 50 mg PO ONCE PM 06/14/23 06/14/23 Previous Rx's Medication Instructions Recorded clobetasol 0.05 % topical cream 1 applic topical BID #60 grams 05/26/22 metformin 500 mg tablet 500 mg PO BID #180 tabs 10/04/22 lithium carbonate 300 mg 600 mg (2 x 300 mg) PO BID #120 12/30/22 tablet,extended release tabs potassium chloride 10 mEq 20 meq (2 x 10 mEq) PO TID low 12/30/22 tablet,extended release potassium #18 tabs zolpidem 10 mg tablet 10 mg PO BEDTIME PRN insomnia #90 04/14/23 tabs dextroamphetamine-amphetamine 30 30 mg PO BID #60 tabs 04/28/23 mg tablet (Adderall) dextroamphetamine-amphetamine 30 30 mg PO BID #60 tabs 04/28/23 mg tablet (Adderall) clonazepam 1 mg tablet 1 mg PO TID #90 tabs 06/14/23 gabapentin 300 mg capsule 300 mg PO TID #90 caps 06/14/23 dextroamphetamine-amphetamine 30 30 mg PO BID #60 tabs 06/24/23 mg tablet (Adderall) Allergies Allergy/AdvReac Type Severity Reaction Status Date / Time Penicillins Allergy Unknown Verified 06/16/23 09:36 Review of Systems Review of Systems Narrative: GENERAL: negative chills, fatigue, malaise, fever, sweats. HEENT: negative sinus pain, ear pain, sore throat RESPIRATORY: negative dyspnea, cough CARDIOVASCULAR: negative chest pain, palpitations GASTROINTESTINAL: negative nausea, vomiting, abdominal pain : negative dysuria, frequency, hematuria MUSCULOSKELETAL: Positive muscle or bony pain SKIN: Positive rash, skin lesions NEUROLOGIC: negative weakness, numbness ROS Unobtainable: All systems reviewed & are unremarkable except as noted in HPI and below Patient History Medical History DM type 2 with diabetic dyslipidemia Plaque psoriasis (~2017) Alcohol use disorder Obesity (BMI 30.0-34.9) Generalized anxiety disorder Chronic insomnia Essential hypertension Gout ADD (attention 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) Bipolar 1 disorder (~2001) Patient denies medical problems Social History Smoking Status: Current every day smoker Smoking Status: Current every day smoker alcohol intake frequency: 3 or more drinks per day Alcohol type: hard liquor Substance Use Type: former substance user Exam Narrative Exam Narrative: GENERAL: in no distress, not toxic not dyspneic HEAD: Normocephalic. EYES: Pupils equal round ENT: Mucous membranes moist. No malocclusion or trismus. NECK: Trachea midline. At the angle of the left mandible, there is a linear dehiscence of wound that is 3 cm in length. Granulation tissue at the center of this gap that is about 5 mm wide. Mild tender to touch no fluctuance. CARDIOVASCULAR: Regular rate and rhythm RESPIRATORY: Clear to auscultation. Breath sounds equal bilaterally. No wheezes, rales, or rhonchi. GASTROINTESTINAL: Abdomen soft, non-tender EXTREMITIES: No gross deformities. BACK: No flank tenderness. NEURO: AOx4. SKIN: Warm and dry patient does have diffuse global psoriasis of the arms chest abdomen and legs. There are raised papules that are tender to touch diffusely on the bilateral legs and feet. None seen on the soles of the feet. These measure an average 3 mm in diameter. Not vesicular. Legs and feet otherwise warm soft pink. Anywhere I touch on the legs and feet, patient has pain. No crepitus. Skin otherwise intact PSYCH: Not anxious, is cooperative Initial Vital Signs Initial Vital Signs: Vital Signs Temperature 97.5 F L 06/16/23 09:25 Pulse Rate 108 H 06/16/23 09:25 Respiratory Rate 17 06/16/23 09:25 Blood Pressure 163/106 H 06/16/23 09:25 Pulse Oximetry 98 06/16/23 09:25 Oxygen Delivery Method Room Air 06/16/23 09:25 Course Orders Ordered: Discontinued Medications Gabapentin (Gabapentin 600 Mg Tablet) 600 mg PO NOW ONE Stop: 06/16/23 19:06 Last Admin: 06/16/23 19:48 Dose: 600 mg Documented By: GC Sodium Chloride (Normal Saline 0.9%) 1,000 mls @ 1,000 mls/hr IV BOLUS ONE Stop: 06/16/23 11:01 Last Infusion: 06/16/23 11:45 Dose: Infused Documented By: Admin: 06/16/23 10:45 Dose: 1,000 mls/hr Documented By: SPF Sodium Chloride (Normal Saline 0.9%) 500 mls @ 1,000 mls/hr IV BOLUS ONE Stop: 06/16/23 12:05 Last Infusion: 06/16/23 12:54 Dose: Infused Documented By: Admin: 06/16/23 12:06 Dose: 1,000 mls/hr Documented By: OW Doxycycline Hyclate 100 mg/ (Sodium Chloride) 100 mls @ 100 mls/hr IV NOW ONE Stop: 06/16/23 14:17 Last Infusion: 06/16/23 16:40 Dose: Infused Documented By: Admin: 06/16/23 15:14 Dose: 100 mls/hr Documented By: SPF POTASSIUM CHLORIDE IN WATER (Potassium Cl 10 Meq/100 Ml Rosa M) 10 meq in 100 mls @ 100 mls/hr IV Q1H LIVIER Stop: 06/16/23 17:44 Last Infusion: 06/16/23 18:35 Dose: Infused Documented By: Admin: 06/16/23 17:04 Dose: 100 mls/hr Documented By: SPF Sodium Chloride (Normal Saline 0.9%) 1,000 mls @ 1,000 mls/hr IV BOLUS ONE Stop: 06/16/23 17:34 Last Infusion: 06/16/23 18:35 Dose: Infused Documented By: Admin: 06/16/23 17:04 Dose: 1,000 mls/hr Documented By: SPF Clindamycin Phosphate (Cleocin) 600 mg in 50 mls @ 50 mls/hr IV NOW ONE Stop: 06/16/23 19:58 Last Infusion: 06/16/23 20:23 Dose: Infused Documented By: Admin: 06/16/23 19:23 Dose: 50 mls/hr Documented By: SPF Ketorolac Tromethamine (Ketorolac 30 Mg/Ml Vial) 15 mg IV NOW ONE Stop: 06/16/23 19:02 Last Admin: 06/16/23 19:22 Dose: 15 mg Documented By: SPF Morphine Sulfate (Morphine 4 Mg/Ml Inj) 4 mg IV NOW ONE Stop: 06/16/23 13:25 Last Admin: 06/16/23 13:48 Dose: 4 mg Documented By: SPF Ondansetron HCl (Ondansetron 4 Mg/2 Ml Inj) 4 mg IV NOW PRN PRN Reason: Nausea And Vomiting Ondansetron HCl (Ondansetron 4 Mg Odt) 4 mg SL NOW PRN PRN Reason: Nausea And Vomiting Potassium Chloride (Potassium Chloride 20 Meq Tab) 20 meq PO NOW ONE Stop: 06/16/23 11:47 Last Admin: 06/16/23 12:15 Dose: 20 meq Documented By: Vital Signs Vital signs: Vital Signs - 8 hr 06/16/23 17:30 06/16/23 17:30 06/16/23 18:00 Pulse Rate 98 H 99 H Respiratory Rate 22 25 H Blood Pressure 155/95 H Pulse Oximetry 96 96 Oxygen Delivery Method Room Air 06/16/23 18:00 06/16/23 18:30 06/16/23 18:30 Pulse Rate 99 H Respiratory Rate 26 H Blood Pressure 156/84 H 137/77 Pulse Oximetry 97 Oxygen Delivery Method Room Air 06/16/23 19:00 06/16/23 19:00 06/16/23 19:36 Pulse Rate 98 H 103 H Respiratory Rate 20 Blood Pressure 143/96 H Pulse Oximetry 95 97 Oxygen Delivery Method Room Air 06/16/23 19:37 06/16/23 19:37 06/16/23 20:00 Pulse Rate 101 H 92 H Respiratory Rate 23 20 Blood Pressure 154/93 H Pulse Oximetry 97 96 Oxygen Delivery Method 06/16/23 20:00 06/16/23 20:30 06/16/23 20:30 Pulse Rate 93 H Respiratory Rate 20 Blood Pressure 147/94 H 150/99 H Pulse Oximetry 97 Oxygen Delivery Method 06/16/23 21:00 06/16/23 21:00 06/16/23 21:30 Pulse Rate 90 Respiratory Rate 17 Blood Pressure 146/93 H 145/97 H Pulse Oximetry 94 Oxygen Delivery Method 06/16/23 21:30 06/16/23 22:00 06/16/23 22:00 Pulse Rate 90 85 Respiratory Rate 16 16 Blood Pressure 151/95 H Pulse Oximetry 96 97 Oxygen Delivery Method 06/16/23 22:30 06/16/23 22:30 06/16/23 23:00 Pulse Rate 87 Respiratory Rate 16 Blood Pressure 155/96 H 138/77 Pulse Oximetry 96 Oxygen Delivery Method 06/16/23 23:00 Pulse Rate 88 Respiratory Rate 18 Blood Pressure Pulse Oximetry 97 Oxygen Delivery Method MDM - Skin/Abscess/Foreign Bdy Lab Data 06/16/23 10:20 06/16/23 10:20 Labs: Lab Results 06/16/23 06/16/23 Range/Units 10:20 11:46 WBC 11.9 H (4.5-11.0) X10^3/uL RBC 4.35 L (4.5-5.9) X10^6/uL Hgb 15.0 (13.5-17.5) g/dL Hct 42.9 (41-53) % MCV 98.8 D (80-100) fL MCH 34.4 H (26-34) PG MCHC 34.8 (30-36) % RDW 14.8 (11.6-14.8) % Plt Count 296 (150-400) X10^3/uL Neut % (Auto) 80.6 H (50-75) % Lymph % (Auto) 13.1 L (25-40) % Andrews % (Auto) 3.1 (3-14) % Eos % (Auto) 2.1 (2-4) % Baso % (Auto) 1.1 (0-2) % Neut # (Auto) 9600 H (9472-4784) /uL Lymph # (Auto) 1600 (2738-3682) /uL Andrews # (Auto) 400 (0-900) /uL Eos # (Auto) 200 (0-450) /uL Baso # (Auto) 100 (0-100) /uL PT 15.8 H (10.1-12.7) SECONDS INR 1.4 H (0.9-1.3) APTT 35 (26-36) SECONDS Sodium 135 L (137-145) mmol/L Potassium 2.7 L* D (3.4-5.1) mmol/L Chloride 97 L (98-107) mmol/L Carbon Dioxide 28 (22-32) mmol/L BUN 5 L (9-20) mg/dL Creatinine 0.73 (0.66-1.25) mg/dL Estimated GFR > 60 (>60) mL/min BUN/Creatinine Ratio 6.8 (6-22) Glucose 130 H (70-100) mg/dL Lactate 1.0 (0.7-2.1) mmol/L Calcium 9.6 (8.4-10.2) mg/dL Magnesium 1.7 (1.6-2.3) mg/dL Total Bilirubin 1.0 (0.2-1.3) mg/dL AST 39 (17-59) IU/L ALT 23 (<50) IU/L Alkaline Phosphatase 112 (38-126) U/L Total Protein 8.4 H (6.3-8.2) g/dL Albumin 4.3 (3.5-5.0) g/dL Globulin 4.1 (1.7-4.1) g/dL Albumin/Globulin Ratio 1.0 (1.0-2.8) Lipase 201 (23-300) U/L Procalcitonin 0.12 (<0.5) ng/mL Serum VDRL Non reactive (Non Reactive) Imaging Data Chest x-ray: Radiologist's Impression: [address] [address] XRay Report Signed Patient: Raman Anderson MR#: [id number] : 1980 Acct:[id number] Age/Sex: 42 / M Date of Service: 06/16/23 Loc: ED Accession Number: [id number] Procedure: XR chest 1V Ordering Provider: Stevo Lawrence MD PROCEDURE: XR CHEST 1V INDICATIONS: suspected sepsis TECHNIQUE: One view of the chest was acquired. COMPARISON: [facility], , XR CHEST 1V, 06/07/2023, 13:49. [facility], , CHEST 2 VIEW, 03/21/2017, 15:53. FINDINGS: Surgical changes and devices: None. Lungs and pleura: Lungs are clear. No pleural effusions or pneumothorax. Mediastinum: Mediastinal contours appear normal. Heart size is normal. Bones and chest wall: No suspicious bony lesions. Overlying soft tissues appear unremarkable. IMPRESSION: No acute cardiopulmonary process. Dictated by: Allen Fulton M.D. on 06/16/2023 at 10:21 Approved by: Allen Fulton M.D. on 06/16/2023 at 10:23 CT soft tissue neck: Radiologist's Impression: [address] [address] [address] Scan Report Signed Patient: Raman Anderson MR#: [id number] : 1980 Acct:[id number] Age/Sex: 42 / M Date of Service: 06/16/23 Loc: ED Accession Number: [id number] Procedure: CT soft tissue neck w con Ordering Provider: Stevo Lawrence MD PROCEDURE: CT SOFT TISSUE NECK W CON INDICATIONS: Left jaw mass TECHNIQUE: After the administration of intravenous contrast, 3.0 mm axial sections acquired from the sella to the aortic arch. Additional oblique axial 3.0 mm sections acquired through the pharynx. 3 mm thick coronal and sagittal reformats were generated. For radiation dose reduction, the following was used: automated exposure control. COMPARISON: None. FINDINGS: Image quality: Excellent. Lymph nodes: No enlarged lymph nodes seen throughout the neck. Vessels: Visualized vasculature appears patent. Neck spaces: The oropharynx, nasopharynx, and pharynx demonstrate no mucosal lesions. The vocal cords, false vocal cords, pyriform sinuses, epiglottis, vallecula, and tongue base all appear normal. Extramucosal spaces appear unremarkable. Glands: Thick-walled collection which appears to be within the posterior aspect of the left parotid gland measuring 3.1 x 2.3 centimeters. There is mild surrounding inflammatory changes. The submandibular glands appear normal. Thyroid gland contains a 1.2 centimeter hypodense nodule within the left aspect of the gland. Miscellaneous: Visualized brain and orbits appear normal. Lung apices appear clear. Superficial soft tissues appear normal. Bones: No suspicious bony lesions. Visualized sinuses and mastoids appear unremarkable. IMPRESSION: Thick-walled fluid collection within the posterior aspect of the left parotid gland measuring 3.1 x 2.3 centimeters, most consistent with an abscess. Recommend follow-up exam after resolution of abscess to exclude underlying mass. Dictated by: Allen Fulton M.D. on 06/16/2023 at 12:12 Approved by: Allen Fulton M.D. on 06/16/2023 at 12:15 [facility] Narrative Medical decision making narrative: Patient for multiple complaints. Chiefly he has pain to both feet that has been ongoing for over a month. He was seen here June 07 for this. Diagnosed with neuropathy of the feet. He did see his primary care June 14, 2003 for follow up. No new treatment was done. Last night he noticed bilateral papular rash to the entire leg and feet. No history of syphilis or chancre. Patient has history of left mandible abscess incision drainage May 01 he states in [place]. He stayed there for 4 days and discharged home. He does not know any type of instructions that were given to him for wound care or why he had the surgery or what was the diagnosis. Patient is very poor historian. He does have psoriasis. He does not have 1 falling him for that he states. He uses a cream. No fever or chills After history and exam CBC CMP lactic acid procalcitonin CT soft tissue neck normal saline RPR [facility] CC: Feet pain Complicating co-morbidities: Psoriasis Data collected from: Patient Medical records reviewed: ER records here June 07 and office visit June 14, patient did have ultrasound of the legs June 07, no DVT Differential considered: Includes but not limited to syphilis cellulitis neuropathy abscess Exam documented above, pertinent findings include: Papular rash/dehisced jaw wound Lab Test results independently reviewed as above. Pertinent findings: WBC 11.9 hemoglobin 15 platelets 296 INR 1.4 sodium 135 potassium 2.7 procalcitonin 0.12 lactic acid 1.0 Independently reviewed EKG sinus tachycardia rate 105 QT prolongation 500/660 Imaging studies independently reviewed: Chest x-ray no acute finding CT soft tissue neck thick-walled fluid collection posterior aspect of the left parotid gland. 3 x 2 cm. Consistent with abscess. Consultations: 3:00 p.m. I spoke with Dr. Greco, otolaryngology. He recommends patient be transferred out, preferably [facility]. He will see patient in consult. 6:15 p.m.. Spoke with [facility]. Ruiz, recommends adding clindamycin. She will follow in consult, admit to hospitalist 6:45 p.m.. Spoke with [facility] hospitalist, Dr. Chaudhari, he will accept patient Treatments: Morphine doxycycline potassium normal saline Zofran, Neurontin, clindamycin Re-evaluations: 3:15 p.m.. Spoke with patient my discussion with Otolaryngology and recommends transfer for higher level of care. Unable to treat for his neck abscess here. In addition he will need further evaluation of his rash at another hospital as well. He does understand and agree for transfer Discussion: Appropriate for transfer, we do not have otolaryngology coverage here, I have contacted ENT and recommends transferring patient, Zofran was given prior to EKG. No further Zofran was given. Patient has not had any adverse effects with QT Diagnosis: Neck abscess hypokalemia Discharge Plan Departure Patient Disposition: [facility] Clinical Impression: Abscess of neck, Acute hypokalemia Prescriptions: No Action potassium chloride 10 mEq tablet extended release 20 meq PO TID Qty: 18 0RF Rx Instructions: Potassium chloride 10mEq 2 tablets TID x 3 days zolpidem 10 mg tablet 10 mg PO BEDTIME PRN (Reason: insomnia) Qty: 90 0RF clonazepam 1 mg tablet 1 mg PO TID Qty: 90 0RF dextroamphetamine-amphetamine [Adderall] 30 mg tablet 30 mg PO BID Qty: 60 0RF Rx Instructions: administer doses at least 4-6 hours apart metformin 500 mg tablet 500 mg PO BID Qty: 180 3RF thiamine HCl (vitamin B1) 100 mg tablet 100 mg PO DAILY levothyroxine 50 mcg tablet 50 mcg PO DAILY spironolactone 50 mg tablet 50 mg PO DAILY losartan 25 mg tablet 25 mg PO DAILY trazodone 50 mg tablet 50 mg PO ONCE PM gabapentin 300 mg capsule 300 mg PO TID Qty: 90 5RF clobetasol 0.05 % cream 1 applic topical BID Qty: 60 5RF lithium carbonate 300 mg tablet extended release 600 mg PO BID Qty: 120 5RF mirtazapine 45 mg tablet 45 mg PO BEDTIME dextroamphetamine-amphetamine [Adderall] 30 mg tablet 30 mg PO BID Qty: 60 0RF Rx Instructions: administer doses at least 4-6 hours apart dextroamphetamine-amphetamine [Adderall] 30 mg tablet 30 mg PO BID Qty: 60 0RF Rx Instructions: administer doses at least 4-6 hours apart Referrals: Adrian Pedroza MD [Primary Care Provider] -
--- NOTE | 2023-06-16 11:36 | DI.CT.S_ITS ---
PROCEDURE: CT SOFT TISSUE NECK W CON INDICATIONS: Left jaw mass TECHNIQUE: After the administration of intravenous contrast, 3.0 mm axial sections acquired from the sella to the aortic arch. Additional oblique axial 3.0 mm sections acquired through the pharynx. 3 mm thick coronal and sagittal reformats were generated. For radiation dose reduction, the following was used: automated exposure control. COMPARISON: None. FINDINGS: Image quality: Excellent. Lymph nodes: No enlarged lymph nodes seen throughout the neck. Vessels: Visualized vasculature appears patent. Neck spaces: The oropharynx, nasopharynx, and pharynx demonstrate no mucosal lesions. The vocal cords, false vocal cords, pyriform sinuses, epiglottis, vallecula, and tongue base all appear normal. Extramucosal spaces appear unremarkable. Glands: Thick-walled collection which appears to be within the posterior aspect of the left parotid gland measuring 3.1 x 2.3 centimeters. There is mild surrounding inflammatory changes. The submandibular glands appear normal. Thyroid gland contains a 1.2 centimeter hypodense nodule within the left aspect of the gland. Miscellaneous: Visualized brain and orbits appear normal. Lung apices appear clear. Superficial soft tissues appear normal. Bones: No suspicious bony lesions. Visualized sinuses and mastoids appear unremarkable. IMPRESSION: Thick-walled fluid collection within the posterior aspect of the left parotid gland measuring 3.1 x 2.3 centimeters, most consistent with an abscess. Recommend follow-up exam after resolution of abscess to exclude underlying mass. Dictated by: Allen Fulton M.D. on 06/16/2023 at 12:12 Approved by: Allen Fulton M.D. on 06/16/2023 at 12:15
[2023-06-16 12:03] LABS: Magnesium 1.7 mg/dL (1.6-2.3)
[2023-06-16] MEDS: SODIUM CHLORIDE 0.9% 500 ML 1000 ML IV (12:06)
[2023-06-16] MEDS: POTASSIUM CHLORIDE 20 MEQ TAB PO (12:15)
[2023-06-16] MEDS: MORPHINE 4 MG/ML INJ IV (13:48)
[2023-06-16] MEDS: DOXYCYCLINE 100 MG in SODIUM CHLORIDE 0.9% 100 ML IV (15:14)
--- NOTE | 2023-06-16 15:58 | PC.NURSE ---
Addendum entered by Isabelle Grayson CNA 06/16/23 16:19: 1605- [facility], spoke with Patrick, on waitlist Original Note: Calling hospitals for patient transfer 1518- [facility], spoke with Ailyn, on waitlist 1520- [facility], spoke with Eitan, on waitlist 1530- [facility], spoke with Nelda, on waitlist
[2023-06-16] MEDS: POTASSIUM CHLORIDE IN WATER 10 MEQ/100 ML PIGGYBACK 100 MEQ IV (17:04)
[2023-06-16] MEDS: KETOROLAC 30 MG/ML VIAL 15 MG IV (19:22)
[2023-06-16] MEDS: CLINDAMYCIN 600 MG/50 ML PIGGYBACK 50 MG IV (19:23)
[2023-06-16] MEDS: GABAPENTIN 600 MG TABLET PO (19:48)
[2023-06-18 03:09] LABS: RPR Screen Non Reactive (Non Reactive)
== END 2023-06-16 23:27 | disposition short-term general hospital (02) ==
PROVIDERS: Emergency Provider Emergency Medicine; Family Provider Internal Medicine; PCP Internal Medicine
DX: L02.11 Cutaneous abscess of neck (principal); E87.6 Hypokalemia; Z79.899 Other long term (current) drug therapy
CPT/HCPCS: 36415; 70491; 71045; 80053; 83605; 83690; 83735; 84145; 85025; 85610; 85730; 86592; 87040; 93005; 96361; 96365; 96366; 96367; 96375; 99284; 99285; J1885; J2270; Q9967

== ENCOUNTER → 2023-10-06 14:15 | Outpatient (CLI) | payer OTHER, MEDICAID, SELFPAY ==
[2023-10-06 15:27] LABS: Hematocrit 37.1 % (41-53); Hemoglobin 12.9 g/dL (13.5-17.5); Mean Corpuscular HGB Conc 34.9 % (30-36); Mean Corpuscular Hemoglobin 37.6 PG (26-34); Mean Corpuscular Volume 107.8 fL (80-100); Platelet Count 295 X10^3/uL (150-400); Red Blood Cell Count 3.44 X10^6/uL (4.5-5.9); Red Cell Distribution Width 19.1 % (11.6-14.8); White Blood Cell Count 9.7 X10^3/uL (4.5-11.0)
[2023-10-06 15:45] LABS: Lithium 0.8 mmol/L (0.6-1.2)
[2023-10-06 16:03] LABS: Alanine Aminotransferase 33 IU/L (<50); Albumin 3.3 g/dL (3.5-5.0); Albumin Globulin Ratio 0.9 (1.0-2.8); Alkaline Phosphatase 120 U/L (38-126); Aspartate Aminotransferase 65 IU/L (17-59); BUN Creatinine Ratio 7.6 (6-22); Bilirubin Total 1.4 mg/dL (0.2-1.3); Blood Urea Nitrogen 5 mg/dL (9-20); Calcium 8.8 mg/dL (8.4-10.2); Carbon Dioxide 28 mmol/L (22-32); Chloride 104 mmol/L (98-107); Estimated Glomerular Filt Rate > 60 mL/min (>60); Globulin 3.6 g/dL (1.7-4.1); Glucose 101 mg/dL (70-100); HEMOLYSIS < 15 (0-50); Potassium 3.9 mmol/L (3.4-5.1); Sodium 136 mmol/L (137-145); Total Protein 6.9 g/dL (6.3-8.2)
[2023-10-06 16:26] LABS: Hemoglobin A1C% w Est Avg Glu 5.5 % (4.0-6.0)
== END ==
PROVIDERS: Family Provider Internal Medicine; PCP Internal Medicine; Referring Provider Internal Medicine; Visit Provider Internal Medicine
DX: E11.69 Type 2 diabetes mellitus with other specified complication (principal); E78.5 Hyperlipidemia, unspecified; F31.9 Bipolar disorder, unspecified
CPT/HCPCS: 80053; 80178; 83036; 84443; 85027

== ENCOUNTER 2024-01-05 15:42 | Emergency (ER) | payer OTHER, MEDICAID, SELFPAY ==
[2024-01-05] VITALS (27 sets, daily range): BP systolic 109–149; BP diastolic 55–119; PULSE 97–218; RESP 15–31; TEMP 36.8; O2SAT 91–98; BMI 33.1
--- NOTE | 2024-01-05 | DI.RAD.S_ITS ---
PROCEDURE: XR FOOT LT MIN 3V INDICATIONS: FOREIGN BODY BASE OF GREAT TOE TECHNIQUE: 3 views of the foot were acquired. COMPARISON: None. FINDINGS: Bones: No fractures or dislocations. No suspicious bony lesions. Soft tissues: No tibiotalar joint effusion. Achilles tendon appears normal. IMPRESSION: No radiopaque foreign body. Dictated by: Suzanne Schaeffer M.D. on 01/05/2024 at 16:50 Approved by: Suzanne Schaeffer M.D. on 01/05/2024 at 16:51
--- NOTE | 2024-01-05 15:52 | DI.RAD.S_ITS ---
PROCEDURE: XR CHEST 1V INDICATIONS: altered mental status TECHNIQUE: One view of the chest was acquired. COMPARISON: [facility], CR, XR CHEST 1V, 06/16/2023, 10:06. FINDINGS: Surgical changes and devices: None. Lungs and pleura: Lungs are clear. No pleural effusions or pneumothorax. Mediastinum: Mediastinal contours appear normal. Heart size is enlarged. Bones and chest wall: No suspicious bony lesions. Overlying soft tissues appear unremarkable. IMPRESSION: No acute pulmonary process. Dictated by: Suzanne Schaeffer M.D. on 01/05/2024 at 16:50 Approved by: Suzanne Schaeffer M.D. on 01/05/2024 at 16:50
[2024-01-05] MEDS: ALBUTEROL/IPRATROPIUM 3 ML AMPUL 9 ML INH (16:15)
[2024-01-05 16:34] LABS: Hematocrit 34.4 % (41-53); Hemoglobin 11.9 g/dL (13.5-17.5); Mean Corpuscular HGB Conc 34.4 % (30-36); Mean Corpuscular Volume 113.1 fL (80-100); Platelet Count 265 X10^3/uL (150-400); Red Blood Cell Count 3.05 X10^6/uL (4.5-5.9); Red Cell Distribution Width 15.8 % (11.6-14.8); White Blood Cell Count 28.8 X10^3/uL (4.5-11.0)
[2024-01-05 16:35] LABS: Add Manual Diff / Slide Review YES
[2024-01-05] MEDS: LIDOCAINE 2% (GLYDO) 6 ML GEL TOP (16:45)
[2024-01-05 16:46] LABS: Ammonia (NH3) 58 umol/L (9-30)
[2024-01-05 16:47] LABS: Alanine Aminotransferase 29 IU/L (<50); Albumin 3.2 g/dL (3.5-5.0); Albumin Globulin Ratio 0.8 (1.0-2.8); Alkaline Phosphatase 184 U/L (38-126); Aspartate Aminotransferase 100 IU/L (17-59); BUN Creatinine Ratio 6.5 (6-22); Blood Urea Nitrogen 30 mg/dL (9-20); Calcium 8.4 mg/dL (8.4-10.2); Carbon Dioxide 29 mmol/L (22-32); Chloride 89 mmol/L (98-107); Estimated Glomerular Filt Rate 15 mL/min (>60); Globulin 3.9 g/dL (1.7-4.1); Glucose 113 mg/dL (70-100); HEMOLYSIS < 15 (0-50); Potassium 3.4 mmol/L (3.4-5.1); Sodium 127 mmol/L (137-145); Total Protein 7.1 g/dL (6.3-8.2)
[2024-01-05 16:48] LABS: Macrocytosis 1+; Neutrophils Absolute Manual 25632 /uL (3000-5900); Total Cells Counted 100
--- NOTE | 2024-01-05 17:21 | PC.NURSE ---
pt was incontinent of stool and urine. placed a rodriguez cath for accurate I&O, bladder scan reported retention of 246cc. pt had minimal urine output with rodriguez insertion . tolerated well . pt skin has psoriasis all over. some are scabbed . pt sclera is icteric, skin is yellow. pt is bloated. and swollen. left great toe appears to have glass or some foregin body sticking out of it. family is at bedside. pt is tearful. emotional support given.
[2024-01-05] MEDS: SODIUM CHLORIDE 0.9% 1,000 ML 1000 ML IV (17:31)
[2024-01-05 17:36] LABS: Lactate (Lactic Acid) 3.3 mmol/L (0.7-2.1)
[2024-01-05 17:41] LABS: Appearance Urine UA CLOUDY
[2024-01-05 17:45] LABS: UR Morphine/Opiate cutoff 300 Negative (Negative); Ur Creatinine Normal (Normal); Ur Specific Gravity Normal (Normal); Urine Amphetamines Negative (Negative); Urine Barbiturates Negative (Negative); Urine Benzodiazepines Negative (Negative); Urine Cocaine Negative (Negative); Urine MDMA Negative (Negative); Urine Methadone Negative (Negative); Urine Methamphetamines Negative (Negative); Urine Oxycodone Negative (Negative); Urine Phencyclidine Negative (Negative); Urine Tetrahydrocannabinol Negative (Negative); Urine Tricyclic Antidepressant Negative (Negative); Urine pH Normal (Normal)
--- NOTE | 2024-01-05 17:48 | DI.CT.S_ITS ---
PROCEDURE: CT KIDNEY URETER BLADDER (KUB) INDICATIONS: renal failure, liver failure TECHNIQUE: Axial sections were acquired from the lung bases to the pubic symphysis. Coronal and sagittal reformats were performed. For radiation dose reduction, the following was used: automated exposure control, adjustment of mA and/or kV according to patient size. COMPARISON: None. FINDINGS: Image quality: Diagnostic. Lower Chest: No significant findings. URINARY: Right Kidney: No stones or hydronephrosis. Right Ureter: No hydroureter. Left Kidney: No stones or hydronephrosis. Left Ureter: No hydroureter. Bladder: Decompressed around a Cervantes catheter in situ. ABDOMEN: Liver: Hepatomegaly and hepatic steatosis. Subcentimeter left hepatic hypodensity, probable cyst. Gallbladder: No radiopaque gallstones or wall thickening. Biliary ducts: No biliary dilation. Pancreas: No ductal dilation. Spleen: Size is within normal limits. Adrenal Glands: No adrenal nodules. Stomach and Bowel: Normal colonic caliber, without significant wall thickening. Peritoneum: Moderate abdominal pelvic ascites. No pneumoperitoneum Ventral Wall: Anasarca. No significant ventral hernias. Abdominal Nodes: No enlarged retroperitoneal or mesenteric lymph nodes. Vessels: Aorta and inferior vena cava are normal in size. PELVIS: Pelvic Organs: Unremarkable. Pelvic Nodes: Unremarkable. Miscellaneous: No inguinal hernias are seen. Bones: Unremarkable. IMPRESSION: Approved by: Brianda Billingsley M.D.,Ph.D. on 01/05/2024 at 18:04 Hepatomegaly and hepatic steatosis. Moderate abdominopelvic ascites and anasarca. No nephrolithiasis or hydronephrosis.
--- NOTE | 2024-01-05 17:53 | ED_ITS ---
HPI - General Adult <Elina Hand, DO - Last Filed: 01/08/24 07:02> General Chief complaint: Altered Mental Status Stated complaint: GLF Time Seen by Provider: 01/05/24 17:05 Source: EMS Mode of arrival: EMS Limitations: no limitations History of Present Illness HPI narrative: 43-year-old male with history of bipolar disorder, ADD, hypertension, plaque psoriasis, diabetes type 2, chronic alcohol abuse, known liver disease who presents with complaint of altered mental status, tremor, report of vomiting. Patient did have some bright red blood according to his son earlier today. None persistent. Patient denies any pain currently. He can tell me his name he gives answers to some questions but has trouble with some long-term history. Patient denies any shortness of breath. His abdomen is firm and distended he states it has been increasing in size over time. He does note he has had decreasing urine output over time, denies any diarrhea or black or bloody stools. States he was piece of glass in his left toe. Unsure of his tetanus status. Patient is on multiple medications but he can not give me history currently. He is allergic to penicillin which he can rely. Does smoke daily, drinks 8 beers daily per patient, patient denies active recreational drugs but has reportedly former history. Denies any IV drugs. His are at bedside as well as his son. Related Data Home Medications Medication Instructions Recorded Confirmed mirtazapine 45 mg tablet 45 mg PO BEDTIME 01/13/23 12/07/23 spironolactone 50 mg tablet 50 mg PO DAILY 06/14/23 12/07/23 thiamine HCl (vitamin B1) 100 mg 100 mg PO DAILY 06/14/23 12/07/23 tablet trazodone 50 mg tablet 50 mg PO ONCE PM 06/14/23 12/07/23 Previous Rx's Medication Instructions Recorded clobetasol 0.05 % topical cream 1 applic topical BID #60 grams 05/26/22 gabapentin 300 mg capsule 300 mg PO TID #90 caps 06/14/23 zolpidem 10 mg tablet 10 mg PO BEDTIME PRN insomnia #90 07/14/23 tabs dextroamphetamine-amphetamine 30 30 mg PO BID #60 tabs 08/23/23 mg tablet (Adderall) dextroamphetamine-amphetamine 30 30 mg PO BID #60 tabs 08/23/23 mg tablet (Adderall) lithium carbonate 300 mg 600 mg (2 x 300 mg) PO BID #120 08/23/23 tablet,extended release tabs metformin 500 mg tablet 500 mg PO BID #180 tabs 10/28/23 clonazepam 1 mg tablet 1 mg PO TID #90 tabs 10/31/23 dextroamphetamine-amphetamine 30 30 mg PO BID #60 tabs 11/03/23 mg tablet (Adderall) Allergies Allergy/AdvReac Type Severity Reaction Status Date / Time Penicillins Allergy Unknown Verified 12/07/23 10:24 Review of Systems <Elina Hand DO - Last Filed: 01/08/24 07:02> Review of Systems ROS Unobtainable: All systems reviewed & are unremarkable except as noted in HPI and below Patient History <Elina Hand DO - Last Filed: 01/08/24 07:02> Medical History Tobacco use disorder Venous (peripheral) insufficiency Polyneuropathy, unspecified DM type 2 with diabetic dyslipidemia Plaque psoriasis (~2017) Alcohol use disorder Obesity (BMI 30.0-34.9) Generalized anxiety disorder Chronic insomnia Essential hypertension Gout ADD (attention 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) Bipolar 1 disorder (~2001) Patient denies medical problems Social History Smoking Status: Current every day smoker Smoking Status: Current every day smoker alcohol intake frequency: 3 or more drinks per day Alcohol type: hard liquor Substance Use Type: former substance user Exam <Elina Hand DO - Last Filed: 01/08/24 07:02> Narrative Exam Narrative: GENERAL: Alert and oriented, conversant but does get confused, obese male, jaundiced HEENT: Head normocephalic, atraumatic, EOMI, positive for scleral icterus, pupils reactive, face symmetric, moist mucous membranes NECK: Supple, full range of motion CARDIOVASCULAR: Regular rate and rhythm without murmurs, rubs or gallops. RESPIRATORY: Breath sounds equal bilaterally, no wheezes rales or rhonchi. ABDOMEN: Soft, nontender, distended, no caput. Normoactive bowel sounds all 4 quadrants. No guarding or rebound, rigidity, no mass : No CVA tenderness, facility catheter in place with minimal amount dark urine. EXTREMITIES: Normal range of motion, no clubbing or edema. Neurovascularly intact NEUROLOGICAL: Cranial nerves II through XII grossly intact. Moving all extremities, mild tremor. SKIN: Warm, dry, no petechiae, patient erythematous bilateral extremities sister with history of plaque psoriasis. Initial Vital Signs Initial Vital Signs: Vital Signs Pulse Rate 99 H 01/05/24 15:48 Respiratory Rate 01/05/24 15:48 Pulse Oximetry 95 01/05/24 15:48 Oxygen Delivery Method Room Air 01/05/24 15:48 <Elina Stephens MD - Last Filed: 01/06/24 05:47> Initial Vital Signs Initial Vital Signs: Vital Signs Pulse Rate 99 H 01/05/24 15:48 Respiratory Rate 01/05/24 15:48 Pulse Oximetry 95 01/05/24 15:48 Oxygen Delivery Method Room Air 01/05/24 15:48 Scores <Elina Hadn DO - Last Filed: 01/08/24 07:02> GCS Femi coma scale eye opening: Spontaneous Femi coma scale verbal response: Confused [place] coma scale motor response: Obey commands [place] coma scale total score: 14 <Elina Stephens MD - Last Filed: 01/06/24 05:47> GCS Femi coma scale total score: 14 Course <Elina Hand DO - Last Filed: 01/08/24 07:02> Orders Ordered: Discontinued Medications Albuterol/Ipratropium (Albuterol/Ipratropium 3 Ml Ampul) 9 ml INH NOW ONE Stop: 01/05/24 16:13 Last Admin: 01/05/24 16:15 Dose: 9 ml Documented By: ADOLFO Sodium Chloride (Normal Saline 0.9%) 1,000 mls @ 1,000 mls/hr IV BOLUS ONE Stop: 01/05/24 18:23 Last Infusion: 01/05/24 18:36 Dose: Infused Documented By: Admin: 01/05/24 17:31 Dose: 1,000 mls/hr Documented By: ONESIMO Sodium Chloride (Normal Saline 0.9%) 1,000 mls @ 125 mls/hr IV CONT LIVIER Last Admin: 01/05/24 18:59 Dose: 125 mls/hr Documented By: ONESIMO Ceftriaxone Sodium 2,000 mg/ (Sodium Chloride) 100 mls @ 200 mls/hr IV NOW ONE Stop: 01/05/24 18:53 Last Infusion: 01/05/24 19:58 Dose: Infused Documented By: Admin: 01/05/24 18:59 Dose: 200 mls/hr Documented By: ONESIMO Lactulose (Lactulose 20 Gm/30 Ml Solution) 40 gm PO NOW ONE Stop: 01/05/24 17:58 Last Admin: 01/05/24 18:12 Dose: 40 gm Documented By: ONESIMO Lidocaine HCl (Lidocaine 2% (Glydo) 6 Ml Gel) 6 ml TOP NOW ONE Stop: 01/05/24 17:29 Last Admin: 01/05/24 16:45 Dose: 6 ml Documented By: ONESIMO Pantoprazole Sodium (Pantoprazole 40 Mg Vial) 80 mg IV NOW ONE Stop: 01/05/24 17:53 Last Admin: 01/05/24 18:04 Dose: 80 mg Documented By: ONESIMO Phenobarbital (Phenobarbital 65 Mg/Ml Vial) 65 mg IV NOW ONE Stop: 01/05/24 17:49 Last Admin: 01/05/24 18:05 Dose: 65 mg Documented By: ONESIMO Vital Signs Vital signs: Vital Signs - 8 hr 01/05/24 21:46 01/05/24 21:46 01/05/24 22:00 Pulse Rate 105 H Respiratory Rate 18 Blood Pressure 143/117 H 149/119 H Pulse Oximetry 95 01/05/24 22:00 01/05/24 22:17 01/05/24 22:17 Pulse Rate 106 H 102 H Respiratory Rate 26 H 20 Blood Pressure 118/61 Pulse Oximetry 96 94 <Elina Stephens MD - Last Filed: 01/06/24 05:47> Orders Ordered: Discontinued Medications Albuterol/Ipratropium (Albuterol/Ipratropium 3 Ml Ampul) 9 ml INH NOW ONE Stop: 01/05/24 16:13 Last Admin: 01/05/24 16:15 Dose: 9 ml Documented By: ADOLFO Sodium Chloride (Normal Saline 0.9%) 1,000 mls @ 1,000 mls/hr IV BOLUS ONE Stop: 01/05/24 18:23 Last Infusion: 01/05/24 18:36 Dose: Infused Documented By: Admin: 01/05/24 17:31 Dose: 1,000 mls/hr Documented By: ONESIMO Sodium Chloride (Normal Saline 0.9%) 1,000 mls @ 125 mls/hr IV CONT LIVIER Last Admin: 01/05/24 18:59 Dose: 125 mls/hr Documented By: ONESIMO Ceftriaxone Sodium 2,000 mg/ (Sodium Chloride) 100 mls @ 200 mls/hr IV NOW ONE Stop: 01/05/24 18:53 Last Infusion: 01/05/24 19:58 Dose: Infused Documented By: Admin: 01/05/24 18:59 Dose: 200 mls/hr Documented By: ONESIMO Lactulose (Lactulose 20 Gm/30 Ml Solution) 40 gm PO NOW ONE Stop: 01/05/24 17:58 Last Admin: 01/05/24 18:12 Dose: 40 gm Documented By: ONESIMO Lidocaine HCl (Lidocaine 2% (Glydo) 6 Ml Gel) 6 ml TOP NOW ONE Stop: 01/05/24 17:29 Last Admin: 01/05/24 16:45 Dose: 6 ml Documented By: ONESIMO Pantoprazole Sodium (Pantoprazole 40 Mg Vial) 80 mg IV NOW ONE Stop: 01/05/24 17:53 Last Admin: 01/05/24 18:04 Dose: 80 mg Documented By: ONESIMO Phenobarbital (Phenobarbital 65 Mg/Ml Vial) 65 mg IV NOW ONE Stop: 01/05/24 17:49 Last Admin: 01/05/24 18:05 Dose: 65 mg Documented By: ONESIMO Vital Signs Vital signs: Vital Signs - 8 hr 01/05/24 21:46 01/05/24 21:46 01/05/24 22:00 Pulse Rate 105 H Respiratory Rate 18 Blood Pressure 143/117 H 149/119 H Pulse Oximetry 95 01/05/24 22:00 01/05/24 22:17 01/05/24 22:17 Pulse Rate 106 H 102 H Respiratory Rate 26 H 20 Blood Pressure 118/61 Pulse Oximetry 96 94 Medical Decision Making <Elina Hand, - Last Filed: 01/08/24 07:02> Lab Data 01/05/24 16:10 01/05/24 20:33 Labs: Lab Results 01/05/24 01/05/24 01/05/24 Range/Units 16:10 16:14 16:45 WBC 28.8 H (4.5-11.0) X10^3/uL RBC 3.05 L (4.5-5.9) X10^6/uL Hgb 11.9 L (13.5-17.5) g/dL Hct 34.4 L (41-53) % MCV 113.1 H (80-100) fL MCH 39.0 H (26-34) PG MCHC 34.4 (30-36) % RDW 15.8 H (11.6-14.8) % Plt Count 265 (150-400) X10^3/uL Neut % (Auto) Not Reportable Lymph % (Auto) Not Reportable Todd % (Auto) Not Reportable Eos % (Auto) Not Reportable Baso % (Auto) Not Reportable Lymph # (Auto) Not Reportable Todd # (Auto) Not Reportable Baso # (Auto) Not Reportable Total Counted 100 Seg Neutrophils % 89.0 H (38-70) % Lymphocytes % (Manual) 7.0 L (25-45) % Monocytes % (Manual) 4.0 (2-11) % Neutrophils # (Manual) 53314 H (7824-5346) /uL RBC Morphology See below Macrocytosis 1+ H PT 17.9 H (9.4-12.5) SECONDS INR 1.6 H (0.9-1.3) APTT 35 (25.1-36.5) SECONDS Sodium 127 L (137-145) mmol/L Potassium 3.4 (3.4-5.1) mmol/L Chloride 89 L (98-107) mmol/L Carbon Dioxide 29 (22-32) mmol/L BUN 30 H (9-20) mg/dL Creatinine 4.59 H (0.66-1.25) mg/dL Estimated GFR 15 L (>60) mL/min BUN/Creatinine Ratio 6.5 (6-22) Glucose 113 H (70-100) mg/dL Lactate 3.3 H (0.7-2.1) mmol/L Calcium 8.4 (8.4-10.2) mg/dL Magnesium (1.6-2.3) mg/dL Total Bilirubin 19.0 H (0.2-1.3) mg/dL AST 100 H (17-59) IU/L ALT 29 (<50) IU/L Alkaline Phosphatase 184 H (38-126) U/L Ammonia 58 H (9-30) umol/L Total Creatine Kinase (55-170) U/L Troponin I (0.01-0.034) ng/mL Total Protein 7.1 (6.3-8.2) g/dL Albumin 3.2 L (3.5-5.0) g/dL Globulin 3.9 (1.7-4.1) g/dL Albumin/Globulin Ratio 0.8 L (1.0-2.8) Procalcitonin 3.95 H (<0.5) ng/mL Urine Color Brown Urine Appearance Cloudy Urine pH TNP Ur Specific [place] TNP Urine Protein TNP Urine Glucose (UA) TNP Urine Ketones TNP Urine Occult Blood TNP Urine Nitrate TNP Urine Bilirubin TNP Ur Bilirubin Confirm Positive H (Negative) Urine Urobilinogen TNP Ur Leukocyte Esterase TNP Urine RBC 10-30/hpf H (0-5/HPF) Urine WBC 1-5/hpf (0-5/HPF) Ur Squamous Epith Cells 0-1 /hpf (0-5/HPF) Ur Transition Epith Cell 0-1/hpf (0-5/HPF) Other Crystals Bilirubin Amorphous Sediment 1+ Urine Bacteria Occasional (0-1) (None) Hyaline Casts 0-1/lpf (None) Ur Culture Indicated? Specimen cultured Vol Urine Centrifuged 10ml (spun) U Opiates 300ng/mL cut Negative (Negative) Ur Oxycodone Screen Negative (Negative) Urine Methadone Screen Negative (Negative) Ur Barbiturates Screen Negative (Negative) U Tricyclic Antidepress Negative (Negative) Ur Phencyclidine Scrn Negative (Negative) Ur Amphetamines Screen Negative (Negative) U Methamphetamines Scrn Negative (Negative) Ur MDMA Scrn (Ecstasy) Negative (Negative) U Benzodiazepines Scrn Negative (Negative) Gustavus 2.1 H* (0.6-1.2) mmol/L Urine Cocaine Screen Negative (Negative) U Marijuana (THC) Screen Negative (Negative) Urine Specific [place] (Normal) Ethyl Alcohol < 10 ( - 10) mg/dL Ur Creatinine (Normal) Blood Type Antibody Screen 01/05/24 01/05/24 01/05/24 Range/Units 16:45 18:17 19:53 WBC (4.5-11.0) X10^3/uL RBC (4.5-5.9) X10^6/uL Hgb (13.5-17.5) g/dL Hct (41-53) % MCV (80-100) fL MCH (26-34) PG MCHC (30-36) % RDW (11.6-14.8) % Plt Count (150-400) X10^3/uL Neut % (Auto) Lymph % (Auto) Todd % (Auto) Eos % (Auto) Baso % (Auto) Lymph # (Auto) Todd # (Auto) Baso # (Auto) Total Counted Seg Neutrophils % (38-70) % Lymphocytes % (Manual) (25-45) % Monocytes % (Manual) (2-11) % Neutrophils # (Manual) (9949-6501) /uL RBC Morphology Macrocytosis PT (9.4-12.5) SECONDS INR (0.9-1.3) APTT (25.1-36.5) SECONDS Sodium (137-145) mmol/L Potassium (3.4-5.1) mmol/L Chloride (98-107) mmol/L Carbon Dioxide (22-32) mmol/L BUN (9-20) mg/dL Creatinine (0.66-1.25) mg/dL Estimated GFR (>60) mL/min BUN/Creatinine Ratio (6-22) Glucose (70-100) mg/dL Lactate 3.2 H (0.7-2.1) mmol/L Calcium (8.4-10.2) mg/dL Magnesium (1.6-2.3) mg/dL Total Bilirubin (0.2-1.3) mg/dL AST (17-59) IU/L ALT (<50) IU/L Alkaline Phosphatase (38-126) U/L Ammonia (9-30) umol/L Total Creatine Kinase (55-170) U/L Troponin I (0.01-0.034) ng/mL Total Protein (6.3-8.2) g/dL Albumin (3.5-5.0) g/dL Globulin (1.7-4.1) g/dL Albumin/Globulin Ratio (1.0-2.8) Procalcitonin (<0.5) ng/mL Urine Color Urine Appearance Urine pH Normal Ur Specific [place] Urine Protein Urine Glucose (UA) Urine Ketones Urine Occult Blood Urine Nitrate Urine Bilirubin Ur Bilirubin Confirm (Negative) Urine Urobilinogen Ur Leukocyte Esterase Urine RBC (0-5/HPF) Urine WBC (0-5/HPF) Ur Squamous Epith Cells (0-5/HPF) Ur Transition Epith Cell (0-5/HPF) Other Crystals Amorphous Sediment Urine Bacteria (None) Hyaline Casts (None) Ur Culture Indicated? Vol Urine Centrifuged U Opiates 300ng/mL cut (Negative) Ur Oxycodone Screen (Negative) Urine Methadone Screen (Negative) Ur Barbiturates Screen (Negative) U Tricyclic Antidepress (Negative) Ur Phencyclidine Scrn (Negative) Ur Amphetamines Screen (Negative) U Methamphetamines Scrn (Negative) Ur MDMA Scrn (Ecstasy) (Negative) U Benzodiazepines Scrn (Negative) Gustavus (0.6-1.2) mmol/L Urine Cocaine Screen (Negative) U Marijuana (THC) Screen (Negative) Urine Specific [place] Normal (Normal) Ethyl Alcohol ( - 10) mg/dL Ur Creatinine Normal (Normal) Blood Type A Positive Antibody Screen Negative 01/05/24 01/05/24 Range/Units 20:33 22:18 WBC (4.5-11.0) X10^3/uL RBC (4.5-5.9) X10^6/uL Hgb (13.5-17.5) g/dL Hct (41-53) % MCV (80-100) fL MCH (26-34) PG MCHC (30-36) % RDW (11.6-14.8) % Plt Count (150-400) X10^3/uL Neut % (Auto) Lymph % (Auto) Todd % (Auto) Eos % (Auto) Baso % (Auto) Lymph # (Auto) Todd # (Auto) Baso # (Auto) Total Counted Seg Neutrophils % (38-70) % Lymphocytes % (Manual) (25-45) % Monocytes % (Manual) (2-11) % Neutrophils # (Manual) (2027-5734) /uL RBC Morphology Macrocytosis PT (9.4-12.5) SECONDS INR (0.9-1.3) APTT (25.1-36.5) SECONDS Sodium 128 L (137-145) mmol/L Potassium 3.1 L (3.4-5.1) mmol/L Chloride 92 L (98-107) mmol/L Carbon Dioxide 26 (22-32) mmol/L BUN 30 H (9-20) mg/dL Creatinine 4.66 H (0.66-1.25) mg/dL Estimated GFR 15 L (>60) mL/min BUN/Creatinine Ratio 6.4 (6-22) Glucose 126 H (70-100) mg/dL Lactate (0.7-2.1) mmol/L Calcium 8.1 L (8.4-10.2) mg/dL Magnesium 2.3 (1.6-2.3) mg/dL Total Bilirubin 17.5 H (0.2-1.3) mg/dL AST 92 H (17-59) IU/L ALT 27 (<50) IU/L Alkaline Phosphatase 167 H (38-126) U/L Ammonia (9-30) umol/L Total Creatine Kinase 179 H (55-170) U/L Troponin I < 0.012 (0.01-0.034) ng/mL Total Protein 6.6 (6.3-8.2) g/dL Albumin 2.8 L (3.5-5.0) g/dL Globulin 3.8 (1.7-4.1) g/dL Albumin/Globulin Ratio 0.7 L (1.0-2.8) Procalcitonin (<0.5) ng/mL Urine Color Urine Appearance Urine pH Ur Specific [place] Urine Protein Urine Glucose (UA) Urine Ketones Urine Occult Blood Urine Nitrate Urine Bilirubin Ur Bilirubin Confirm (Negative) Urine Urobilinogen Ur Leukocyte Esterase Urine RBC (0-5/HPF) Urine WBC (0-5/HPF) Ur Squamous Epith Cells (0-5/HPF) Ur Transition Epith Cell (0-5/HPF) Other Crystals Amorphous Sediment Urine Bacteria (None) Hyaline Casts (None) Ur Culture Indicated? Vol Urine Centrifuged U Opiates 300ng/mL cut (Negative) Ur Oxycodone Screen (Negative) Urine Methadone Screen (Negative) Ur Barbiturates Screen (Negative) U Tricyclic Antidepress (Negative) Ur Phencyclidine Scrn (Negative) Ur Amphetamines Screen (Negative) U Methamphetamines Scrn (Negative) Ur MDMA Scrn (Ecstasy) (Negative) U Benzodiazepines Scrn (Negative) Gustavus (0.6-1.2) mmol/L Urine Cocaine Screen (Negative) U Marijuana (THC) Screen (Negative) Urine Specific [place] (Normal) Ethyl Alcohol ( - 10) mg/dL Ur Creatinine (Normal) Blood Type Antibody Screen Point of Care Testing Glucose POC 150 Point of care testing: Point of Care Testing Glucose POC 150 ECG Data Attestation: I personally reviewed and interpreted this ECG as follows: Interpretation: Sinus rhythm rate of 97 TX 152 QRS 84 QTC of 561, no acute ST changes appreciated. MDM Narrative Medical decision making narrative: 43-year-old male known chronic alcohol abuse who appears to be in liver failure as well as renal failure likely hepatorenal syndrome. Patient does have some alteration in mental status he is some mild tremor, may have some alcohol withdrawal component unclear exact last drink may have had some this morning but describes a drinks daily. Patient also has a complaint of piece of glass in his toe. X-ray shows no acute foreign body there does appear to be a small piece on the underside of his great toe in his left foot this was removed by myself there is a small cut but no obvious sign of infection at that site. X-ray was negative for foreign body. Labs show white count of 28, hemoglobin 11.9 this is slightly decreased from prior in September 2028 which was 12.9 he is macrocytosis with platelets of 265. Sodium is 127 potassium 3.4 chloride 89 CO2 is 29 BUN 30 with a creatinine of 4.59, patient has Cervantes catheter placed has had minimal urine output but was sent for UA was quite dark initially. Glucose is 113 lactate initially is 3.3 with a total bilirubin of 19, AST of 100 ALT of 29 alk-phos of 184. UA is positive for bilirubin, 10-30 RBCs, 1-5 white cells, 1 squamous, 1 transitional, positive for bilirubin crystals was sent for culture. UDS is negative, etoh INR Patient CT KUB to evaluate for any obstructive portion his renal failure or other suspect this is hepatorenal. Patient did receive gentle fluids. Dose of phenobarbital for potential alcohol withdrawal but low dose secondary to hepatic and renal failure. Patient signed to Dr. Stephens while awaiting additional lab workups, CT KUB with expectation for transfer to a larger facility for subspecialty care not available here. <Elina Stephens MD - Last Filed: 01/06/24 05:47> Lab Data Labs: Lab Results 01/05/24 01/05/24 01/05/24 Range/Units 16:10 16:14 16:45 WBC 28.8 H (4.5-11.0) X10^3/uL RBC 3.05 L (4.5-5.9) X10^6/uL Hgb 11.9 L (13.5-17.5) g/dL Hct 34.4 L (41-53) % MCV 113.1 H (80-100) fL MCH 39.0 H (26-34) PG MCHC 34.4 (30-36) % RDW 15.8 H (11.6-14.8) % Plt Count 265 (150-400) X10^3/uL Neut % (Auto) Not Reportable Lymph % (Auto) Not Reportable Todd % (Auto) Not Reportable Eos % (Auto) Not Reportable Baso % (Auto) Not Reportable Lymph # (Auto) Not Reportable Todd # (Auto) Not Reportable Baso # (Auto) Not Reportable Total Counted 100 Seg Neutrophils % 89.0 H (38-70) % Lymphocytes % (Manual) 7.0 L (25-45) % Monocytes % (Manual) 4.0 (2-11) % Neutrophils # (Manual) 07300 H (3044-6360) /uL RBC Morphology See below Macrocytosis 1+ H PT 17.9 H (9.4-12.5) SECONDS INR 1.6 H (0.9-1.3) APTT 35 (25.1-36.5) SECONDS Sodium 127 L (137-145) mmol/L Potassium 3.4 (3.4-5.1) mmol/L Chloride 89 L (98-107) mmol/L Carbon Dioxide 29 (22-32) mmol/L BUN 30 H (9-20) mg/dL Creatinine 4.59 H (0.66-1.25) mg/dL Estimated GFR 15 L (>60) mL/min BUN/Creatinine Ratio 6.5 (6-22) Glucose 113 H (70-100) mg/dL Lactate 3.3 H (0.7-2.1) mmol/L Calcium 8.4 (8.4-10.2) mg/dL Magnesium (1.6-2.3) mg/dL Total Bilirubin 19.0 H (0.2-1.3) mg/dL AST 100 H (17-59) IU/L ALT 29 (<50) IU/L Alkaline Phosphatase 184 H (38-126) U/L Ammonia 58 H (9-30) umol/L Total Creatine Kinase (55-170) U/L Troponin I (0.01-0.034) ng/mL Total Protein 7.1 (6.3-8.2) g/dL Albumin 3.2 L (3.5-5.0) g/dL Globulin 3.9 (1.7-4.1) g/dL Albumin/Globulin Ratio 0.8 L (1.0-2.8) Procalcitonin 3.95 H (<0.5) ng/mL Urine Color Brown Urine Appearance Cloudy Urine pH TNP Ur Specific [place] TNP Urine Protein TNP Urine Glucose (UA) TNP Urine Ketones TNP Urine Occult Blood TNP Urine Nitrate TNP Urine Bilirubin TNP Ur Bilirubin Confirm Positive H (Negative) Urine Urobilinogen TNP Ur Leukocyte Esterase TNP Urine RBC 10-30/hpf H (0-5/HPF) Urine WBC 1-5/hpf (0-5/HPF) Ur Squamous Epith Cells 0-1 /hpf (0-5/HPF) Ur Transition Epith Cell 0-1/hpf (0-5/HPF) Other Crystals Bilirubin Amorphous Sediment 1+ Urine Bacteria Occasional (0-1) (None) Hyaline Casts 0-1/lpf (None) Ur Culture Indicated? Specimen cultured Vol Urine Centrifuged 10ml (spun) U Opiates 300ng/mL cut Negative (Negative) Ur Oxycodone Screen Negative (Negative) Urine Methadone Screen Negative (Negative) Ur Barbiturates Screen Negative (Negative) U Tricyclic Antidepress Negative (Negative) Ur Phencyclidine Scrn Negative (Negative) Ur Amphetamines Screen Negative (Negative) U Methamphetamines Scrn Negative (Negative) Ur MDMA Scrn (Ecstasy) Negative (Negative) U Benzodiazepines Scrn Negative (Negative) Gustavus 2.1 H* (0.6-1.2) mmol/L Urine Cocaine Screen Negative (Negative) U Marijuana (THC) Screen Negative (Negative) Urine Specific [place] (Normal) Ethyl Alcohol < 10 ( - 10) mg/dL Ur Creatinine (Normal) Blood Type Antibody Screen 01/05/24 01/05/24 01/05/24 Range/Units 16:45 18:17 19:53 WBC (4.5-11.0) X10^3/uL RBC (4.5-5.9) X10^6/uL Hgb (13.5-17.5) g/dL Hct (41-53) % MCV (80-100) fL MCH (26-34) PG MCHC (30-36) % RDW (11.6-14.8) % Plt Count (150-400) X10^3/uL Neut % (Auto) Lymph % (Auto) Todd % (Auto) Eos % (Auto) Baso % (Auto) Lymph # (Auto) Todd # (Auto) Baso # (Auto) Total Counted Seg Neutrophils % (38-70) % Lymphocytes % (Manual) (25-45) % Monocytes % (Manual) (2-11) % Neutrophils # (Manual) (3307-4118) /uL RBC Morphology Macrocytosis PT (9.4-12.5) SECONDS INR (0.9-1.3) APTT (25.1-36.5) SECONDS Sodium (137-145) mmol/L Potassium (3.4-5.1) mmol/L Chloride (98-107) mmol/L Carbon Dioxide (22-32) mmol/L BUN (9-20) mg/dL Creatinine (0.66-1.25) mg/dL Estimated GFR (>60) mL/min BUN/Creatinine Ratio (6-22) Glucose (70-100) mg/dL Lactate 3.2 H (0.7-2.1) mmol/L Calcium (8.4-10.2) mg/dL Magnesium (1.6-2.3) mg/dL Total Bilirubin (0.2-1.3) mg/dL AST (17-59) IU/L ALT (<50) IU/L Alkaline Phosphatase (38-126) U/L Ammonia (9-30) umol/L Total Creatine Kinase (55-170) U/L Troponin I (0.01-0.034) ng/mL Total Protein (6.3-8.2) g/dL Albumin (3.5-5.0) g/dL Globulin (1.7-4.1) g/dL Albumin/Globulin Ratio (1.0-2.8) Procalcitonin (<0.5) ng/mL Urine Color Urine Appearance Urine pH Normal Ur Specific [place] Urine Protein Urine Glucose (UA) Urine Ketones Urine Occult Blood Urine Nitrate Urine Bilirubin Ur Bilirubin Confirm (Negative) Urine Urobilinogen Ur Leukocyte Esterase Urine RBC (0-5/HPF) Urine WBC (0-5/HPF) Ur Squamous Epith Cells (0-5/HPF) Ur Transition Epith Cell (0-5/HPF) Other Crystals Amorphous Sediment Urine Bacteria (None) Hyaline Casts (None) Ur Culture Indicated? Vol Urine Centrifuged U Opiates 300ng/mL cut (Negative) Ur Oxycodone Screen (Negative) Urine Methadone Screen (Negative) Ur Barbiturates Screen (Negative) U Tricyclic Antidepress (Negative) Ur Phencyclidine Scrn (Negative) Ur Amphetamines Screen (Negative) U Methamphetamines Scrn (Negative) Ur MDMA Scrn (Ecstasy) (Negative) U Benzodiazepines Scrn (Negative) [place] (0.6-1.2) mmol/L Urine Cocaine Screen (Negative) U Marijuana (THC) Screen (Negative) Urine Specific [place] Normal (Normal) Ethyl Alcohol ( - 10) mg/dL Ur Creatinine Normal (Normal) Blood Type A Positive Antibody Screen Negative 01/05/24 01/05/24 Range/Units 20:33 22:18 WBC (4.5-11.0) X10^3/uL RBC (4.5-5.9) X10^6/uL Hgb (13.5-17.5) g/dL Hct (41-53) % MCV (80-100) fL MCH (26-34) PG MCHC (30-36) % RDW (11.6-14.8) % Plt Count (150-400) X10^3/uL Neut % (Auto) Lymph % (Auto) Todd % (Auto) Eos % (Auto) Baso % (Auto) Lymph # (Auto) Todd # (Auto) Baso # (Auto) Total Counted Seg Neutrophils % (38-70) % Lymphocytes % (Manual) (25-45) % Monocytes % (Manual) (2-11) % Neutrophils # (Manual) (4444-1896) /uL RBC Morphology Macrocytosis PT (9.4-12.5) SECONDS INR (0.9-1.3) APTT (25.1-36.5) SECONDS Sodium 128 L (137-145) mmol/L Potassium 3.1 L (3.4-5.1) mmol/L Chloride 92 L (98-107) mmol/L Carbon Dioxide 26 (22-32) mmol/L BUN 30 H (9-20) mg/dL Creatinine 4.66 H (0.66-1.25) mg/dL Estimated GFR 15 L (>60) mL/min BUN/Creatinine Ratio 6.4 (6-22) Glucose 126 H (70-100) mg/dL Lactate (0.7-2.1) mmol/L Calcium 8.1 L (8.4-10.2) mg/dL Magnesium 2.3 (1.6-2.3) mg/dL Total Bilirubin 17.5 H (0.2-1.3) mg/dL AST 92 H (17-59) IU/L ALT 27 (<50) IU/L Alkaline Phosphatase 167 H (38-126) U/L Ammonia (9-30) umol/L Total Creatine Kinase 179 H (55-170) U/L Troponin I < 0.012 (0.01-0.034) ng/mL Total Protein 6.6 (6.3-8.2) g/dL Albumin 2.8 L (3.5-5.0) g/dL Globulin 3.8 (1.7-4.1) g/dL Albumin/Globulin Ratio 0.7 L (1.0-2.8) Procalcitonin (<0.5) ng/mL Urine Color Urine Appearance Urine pH Ur Specific [place]met[place] Urine Protein Urine Glucose (UA) Urine Ketones Urine Occult Blood Urine Nitrate Urine Bilirubin Ur Bilirubin Confirm (Negative) Urine Urobilinogen Ur Leukocyte Esterase Urine RBC (0-5/HPF) Urine WBC (0-5/HPF) Ur Squamous Epith Cells (0-5/HPF) Ur Transition Epith Cell (0-5/HPF) Other Crystals Amorphous Sediment Urine Bacteria (None) Hyaline Casts (None) Ur Culture Indicated? Vol Urine Centrifuged U Opiates 300ng/mL cut (Negative) Ur Oxycodone Screen (Negative) Urine Methadone Screen (Negative) Ur Barbiturates Screen (Negative) U Tricyclic Antidepress (Negative) Ur Phencyclidine Scrn (Negative) Ur Amphetamines Screen (Negative) U Methamphetamines Scrn (Negative) Ur MDMA Scrn (Ecstasy) (Negative) U Benzodiazepines Scrn (Negative) Gustavus (0.6-1.2) mmol/L Urine Cocaine Screen (Negative) U Marijuana (THC) Screen (Negative) Urine Specific Palmet[place] (Normal) Ethyl Alcohol ( - 10) mg/dL Ur Creatinine (Normal) Blood Type Antibody Screen Point of Care Testing Glucose POC 150 Point of care testing: Point of Care Testing Glucose POC 150 MDM Narrative Medical decision making narrative: 43-year-old male known chronic alcohol abuse who appears to be in liver failure as well as renal failure likely hepatorenal syndrome. Patient does have some alteration in mental status he is some mild tremor, may have some alcohol withdrawal component unclear exact last drink may have had some this morning but describes a drinks daily. Patient also has a complaint of piece of glass in his toe. X-ray shows no acute foreign body there does appear to be a small piece on the underside of his great toe in his left foot this was removed by myself there is a small cut but no obvious sign of infection at that site. X-ray was negative for foreign body. Labs show white count of 28, hemoglobin 11.9 this is slightly decreased from prior in September 2028 which was 12.9 he is macrocytosis with platelets of 265. Sodium is 127 potassium 3.4 chloride 89 CO2 is 29 BUN 30 with a creatinine of 4.59, patient has Cervantes catheter placed has had minimal urine output but was sent for UA was quite dark initially. Glucose is 113 lactate initially is 3.3 with a total bilirubin of 19, AST of 100 ALT of 29 alk-phos of 184. UA is positive for bilirubin, 10-30 RBCs, 1-5 white cells, 1 squamous, 1 transitional, positive for bilirubin crystals was sent for culture. UDS is negative, etoh INR Patient CT KUB to evaluate for any obstructive portion his renal failure or other suspect this is hepatorenal. Patient did receive gentle fluids. Dose of phenobarbital for potential alcohol withdrawal but low dose secondary to hepatic and renal failure. Patient signed to Dr. Stephens while awaiting additional lab workups, CT KUB with expectation for transfer to a larger facility for subspecialty care not available here. Dr. Stephens -care of patient is signed out to me by Dr. Hand. Independent review of patient and chart performed by myself. Minimal urine output despite L of IV fluids and Cervantes placement. There is a scant amount of brownish yellow urine in the Cervantes bag. Additional labs significant for CK 179, troponin undetectable, CT of the abdomen and pelvis shows enlarged liver with mild ascites, no large fluid collection amenable to bedside drainage at this time. CT brain negative for acute findings. Procalcitonin is 3.95, ammonia 58. P.o. lactulose ordered. Based on patient's exam at this time it seems as though patient's tremor is more consistent with encephalopathic picture rather than acute alcohol withdrawal. Gustavus level 2.1. Nursing staff contacted poison control who stated that since patient is chronically on lithium he does not need urgent or emergent dialysis at this time based solely on lithium level and advised for hour redraw. Based on cirrhosis and elevated WBC count an empiric dose of 2 g of Rocephin ordered for broad-spectrum antibiotic coverage. Case discussed with it network administrator Dr. Nair at [facility], who requested repeat chemistry but otherwise is happy to accept patient for transfer. Repeat laboratory work at the time of transfer is significant for sodium 128, potassium 3.1, creatinine 4.66, GFR 15. Mildly worsened kidney function compared to prior, however laboratory work is otherwise largely unchanged. Patient transferred in guarded [facility] to [facility] for higher level of care. Critical Care Time <Elina Stephens MD - Last Filed: 01/06/24 05:47> Critical Care Time Critical Care Time: Yes Total Critical Care Time: 53 Attestation: Hepatorenal syndrome with renal failure, hepatic encephalopathy, elevated lithium requiring emergent transfer to higher level of care Discharge Plan Departure Patient Disposition: [facility] Clinical Impression: Hepatorenal syndrome, Acute hepatic encephalopathy, Jaundice, Alcoholic cirrhosis of liver with ascites, Elevated lithium level, Alcohol use disorder Prescriptions: No Action zolpidem 10 mg tablet 10 mg PO BEDTIME PRN (Reason: insomnia) Qty: 90 1RF metformin 500 mg tablet 500 mg PO BID Qty: 180 3RF clonazepam 1 mg tablet 1 mg PO TID Qty: 90 1RF thiamine HCl (vitamin B1) 100 mg tablet 100 mg PO DAILY spironolactone 50 mg tablet 50 mg PO DAILY trazodone 50 mg tablet 50 mg PO ONCE PM gabapentin 300 mg capsule 300 mg PO TID Qty: 90 5RF dextroamphetamine-amphetamine [Adderall] 30 mg tablet 30 mg PO BID Qty: 60 0RF Rx Instructions: administer doses at least 4-6 hours apart clobetasol 0.05 % cream 1 applic topical BID Qty: 60 5RF mirtazapine 45 mg tablet 45 mg PO BEDTIME lithium carbonate 300 mg tablet extended release 600 mg PO BID Qty: 120 5RF dextroamphetamine-amphetamine [Adderall] 30 mg tablet 30 mg PO BID Qty: 60 0RF Rx Instructions: administer doses at least 4-6 hours apart dextroamphetamine-amphetamine [Adderall] 30 mg tablet 30 mg PO BID Qty: 60 0RF Rx Instructions: administer doses at least 4-6 hours apart Referrals: Adrian Pedroza MD [Primary Care Provider] -
[2024-01-05 17:59] LABS: Color Urine UA BROWN
[2024-01-05 18:01] LABS: Amorphous Sediment Urine 1+; Bacteria Urine Occasional (0-1); Hyaline Casts Urine 0-1/LPF; RBC Urine 10-30/HPF (0-5/HPF); Squamous Epithelial Cell Urine 0-1 /HPF (0-5/HPF); Transitional Epi Cells Urine 0-1/HPF (0-5/HPF); Urine Volume 10mL (spun); WBC Urine 1-5/HPF (0-5/HPF)
[2024-01-05 18:02] LABS: Culture Indicated Urine Specimen Cultured; Other Crystals Urine Bilirubin
[2024-01-05] MEDS: PANTOPRAZOLE 40 MG VIAL 80 MG IV (18:04)
[2024-01-05] MEDS: PHENobarbital 65 MG/ML VIAL IV (18:05)
[2024-01-05 18:08] LABS: Ictotest Urine Positive (Negative)
[2024-01-05] MEDS: LACTULOSE 20 GM/30 ML SOLUTION 40 GM PO (18:12)
[2024-01-05 18:39] LABS: INR 1.6 (0.9-1.3); Prothrombin Time 17.9 SECONDS (9.4-12.5)
[2024-01-05 18:41] LABS: PTT Partial Thromboplastin Tim 35 SECONDS (25.1-36.5)
[2024-01-05 18:42] LABS: Ethanol (ETOH) < 10 mg/dL
[2024-01-05 18:51] LABS: Lithium 2.1 mmol/L (0.6-1.2)
[2024-01-05 18:59] LABS: Procalcitonin 3.95 ng/mL (<0.5)
[2024-01-05] MEDS: SODIUM CHLORIDE 0.9% 1,000 ML 125 ML IV (18:59)
[2024-01-05] MEDS: cefTRIAXone 2,000 MG in SODIUM CHLORIDE 0.9% 100 ML 200 MG IV (18:59)
[2024-01-05 19:00] LABS: Reflexed Lactate in 2 Hours Y
--- NOTE | 2024-01-05 20:06 | DI.CT.S_ITS ---
PROCEDURE: CT HEAD/BRAIN WO CON INDICATIONS: GLF, AMS, ENCEPHALOPATHY TECHNIQUE: Noncontrast 4.5 mm thick angled axial sections acquired from the foramen magnum to the vertex, with coronal and sagittal reformats. For radiation dose reduction, the following was used: automated exposure control, adjustment of mA and/or kV according to patient size. COMPARISON: None. FINDINGS: Image quality: Diagnostic. CSF spaces: Basal cisterns are patent. No extra-axial fluid collections. Ventricles are normal in size and shape. Brain: No midline shift. No intracranial masses or hemorrhage. Drew-white matter interface is normal. Skull and face: Calvarium and visualized facial bones are intact, without suspicious lesions. Sinuses: Visualized sinuses and mastoids are clear. IMPRESSION: No acute intracranial pathology. Dictated by: Manjit Fowler M.D. on 01/05/2024 at 21:26 Approved by: Manjit Fowler M.D. on 01/05/2024 at 21:26
[2024-01-05 20:11] LABS: Lactate 2HR (Lactic Acid Rflx) 3.2 mmol/L (0.7-2.1)
[2024-01-05 20:51] LABS: Alanine Aminotransferase 27 IU/L (<50); Albumin 2.8 g/dL (3.5-5.0); Albumin Globulin Ratio 0.7 (1.0-2.8); Alkaline Phosphatase 167 U/L (38-126); Aspartate Aminotransferase 92 IU/L (17-59); BUN Creatinine Ratio 6.4 (6-22); Bilirubin Total 17.5 mg/dL (0.2-1.3); Blood Urea Nitrogen 30 mg/dL (9-20); Calcium 8.1 mg/dL (8.4-10.2); Carbon Dioxide 26 mmol/L (22-32); Chloride 92 mmol/L (98-107); Estimated Glomerular Filt Rate 15 mL/min (>60); Globulin 3.8 g/dL (1.7-4.1); Glucose 126 mg/dL (70-100); HEMOLYSIS < 15 (0-50); Potassium 3.1 mmol/L (3.4-5.1); Sodium 128 mmol/L (137-145); Total Protein 6.6 g/dL (6.3-8.2)
[2024-01-05 22:01] LABS: Magnesium 2.3 mg/dL (1.6-2.3)
--- NOTE | 2024-01-05 23:33 | PC.NURSE ---
Report given to Sindhu GOMEZ at [facility]. Labs given to IT SECURITY CONSULTANT.
[2024-01-05 23:36] LABS: Creatine Kinase 179 U/L (55-170)
--- NOTE | 2024-01-05 23:42 | PC.NURSE ---
THis RN attempted to contact pts family, Sanjeev and Caro ellis on two separate occasions. Pts family did not answer for an update on transfer. Messages left encouraging a call back to the ER for an update.
[2024-01-05 23:49] LABS: Troponin I < 0.012 ng/mL (0.01-0.034)
== END 2024-01-05 23:00 | disposition short-term general hospital (02) ==
PROVIDERS: Emergency Medicine; Emergency Provider Emergency Medicine; Family Provider Internal Medicine; PCP Internal Medicine
DX: K76.7 Hepatorenal syndrome (principal); K70.31 Alcoholic cirrhosis of liver with ascites; K76.82 Hepatic encephalopathy; F10.10 Alcohol abuse, uncomplicated; R79.89 Other specified abnormal findings of blood chemistry; R25.1 Tremor, unspecified; R11.10 Vomiting, unspecified; S91.142A Puncture wound with foreign body of left great toe without damage to nail, initial encounter; W45.8XXA Other foreign body or object entering through skin, initial encounter; W18.30XA Fall on same level, unspecified, initial encounter
CPT/HCPCS: 36415; 70450; 71045; 73630; 74176; 80053; 80178; 80305; 80320; 81001; 82140; 82550; 82962; 83605; 83735; 84145; 84484; 85007; 85025; 85610; 85730; 86850; 86900; 86901; 87040; 87086; 93005; 94640; 96361; 96365; 96375; 99285; 99291; C9113; J0696; J2560

== ENCOUNTER → 2024-02-20 07:37 | Outpatient (CLI) | payer OTHER, MEDICAID, SELFPAY ==
[2024-02-20 08:29] LABS: Hematocrit 40.9 % (41-53); Hemoglobin 13.9 g/dL (13.5-17.5); Mean Corpuscular Hemoglobin 34.7 PG (26-34); Mean Corpuscular Volume 102.2 fL (80-100); Platelet Count 150 X10^3/uL (150-400); Red Cell Distribution Width 14.2 % (11.6-14.8); White Blood Cell Count 8.6 X10^3/uL (4.5-11.0)
[2024-02-20 08:45] LABS: Alanine Aminotransferase 23 IU/L (<50); Albumin 3.7 g/dL (3.5-5.0); Albumin Globulin Ratio 1.2 (1.0-2.8); Alkaline Phosphatase 99 U/L (38-126); Aspartate Aminotransferase 44 IU/L (17-59); BUN Creatinine Ratio 13.1 (6-22); Bilirubin Total 2.3 mg/dL (0.2-1.3); Blood Urea Nitrogen 13 mg/dL (9-20); Calcium 8.4 mg/dL (8.4-10.2); Carbon Dioxide 21 mmol/L (22-32); Chloride 108 mmol/L (98-107); Estimated Glomerular Filt Rate > 60 mL/min (>60); Globulin 3.2 g/dL (1.7-4.1); Glucose 116 mg/dL (70-100); HEMOLYSIS < 15 (0-50); Potassium 3.7 mmol/L (3.4-5.1); Sodium 135 mmol/L (137-145); Total Protein 6.9 g/dL (6.3-8.2)
[2024-02-20 08:48] LABS: Hemoglobin A1C% w Est Avg Glu 5.1 % (4.0-6.0)
[2024-02-20 09:25] LABS: TSH w/ Reflex to FT4 3.98 uIU/mL (0.47-4.68)
== END ==
PROVIDERS: Family Provider Internal Medicine; PCP Internal Medicine; Referring Provider Internal Medicine; Visit Provider Internal Medicine
DX: E78.5 Hyperlipidemia, unspecified (principal); I10 Essential (primary) hypertension; E11.69 Type 2 diabetes mellitus with other specified complication
CPT/HCPCS: 36415; 80053; 83036; 84443; 85027

== ENCOUNTER 2024-02-24 06:57 | Emergency (ER) | payer OTHER, MEDICAID, SELFPAY ==
[2024-02-24 07:00] VITALS: PULSE 86; O2SAT 98
[2024-02-24 07:01] VITALS: BP 122/76; PULSE 83; O2SAT 97
[2024-02-24 07:04] VITALS: BP 122/76; PULSE 85; RESP 18; TEMP 36.6; O2SAT 97; BMI 28.8
--- NOTE | 2024-02-24 07:22 | ED.EXTPRO ---
HPI - Extremity Problem General Chief complaint: Extremity Problem,Nontraumatic Stated complaint: LE numb/tingling Time Seen by Provider: 02/24/24 07:02 Source: patient Mode of arrival: EMS Limitations: no limitations History of Present Illness HPI Narrative: Patient is a 43-year-old male who is here for evaluation of just over 24 hours of bilateral and lower leg numbness and tingling. He does have a history of neuropathy but it states things got worse over the past 24 hours. No fevers. No headache. No change in any lower back pain. No urinary symptoms. He states that he was prescribed insulin but does not take any insulin. He states that there have been doctors who told him that he does not have diabetes and others that say that he does. He states he has been taking his other medications as directed. No fevers. No trauma. Related Data Home Medications Medication Instructions Recorded Confirmed mirtazapine 45 mg tablet 45 mg PO BEDTIME 01/13/23 01/31/24 spironolactone 50 mg tablet 50 mg PO DAILY 06/14/23 01/31/24 thiamine HCl (vitamin B1) 100 mg 100 mg PO DAILY 06/14/23 01/31/24 tablet trazodone 50 mg tablet 50 mg PO ONCE PM 06/14/23 01/31/24 ferrous sulfate 325 mg (65 mg 325 mg PO DAILY 01/31/24 01/31/24 iron) tablet furosemide 40 mg tablet 40 mg PO BID 01/31/24 01/31/24 insulin NPH isoph U-100 human 100 unit SUBCUT 01/31/24 01/31/24 unit/mL subcutaneous suspension (Humulin N NPH U-100 Insulin (isophane susp)) lamotrigine 25 mg tablet 25 mg PO DAILY 01/31/24 01/31/24 nicotine 21 mg/24 hr daily 1 patch topical DAILY 01/31/24 01/31/24 transdermal patch propranolol 20 mg tablet 20 mg PO 3XD 01/31/24 01/31/24 rifaximin 550 mg tablet (Xifaxan) 550 mg PO BID 01/31/24 01/31/24 Previous Rx's Medication Instructions Recorded clobetasol 0.05 % topical cream 1 applic topical BID #60 grams 05/26/22 gabapentin 300 mg capsule 300 mg PO TID #90 caps 06/14/23 metformin 500 mg tablet 500 mg PO BID #180 tabs 10/28/23 Allergies Allergy/AdvReac Type Severity Reaction Status Date / Time Penicillins Allergy Unknown Verified 01/31/24 07:46 Review of Systems Review of Systems Narrative: See HPI Patient History Medical History Diarrhea Tobacco use disorder Venous (peripheral) insufficiency Polyneuropathy, unspecified DM type 2 with diabetic dyslipidemia Plaque psoriasis (~2017) Alcohol use disorder Obesity (BMI 30.0-34.9) Generalized anxiety disorder Chronic insomnia Essential hypertension Gout ADD (attention 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) Bipolar 1 disorder (~2001) Patient denies medical problems Social History Smoking Status: Current every day smoker Smoking Status: Current every day smoker alcohol intake frequency: 3 or more drinks per day Alcohol type: hard liquor Substance Use Type: former substance user Exam Initial Vital Signs Initial Vital Signs: Vital Signs Pulse Rate 86 02/24/24 07:00 Pulse Oximetry 98 02/24/24 07:00 Const General: cooperative, comfortable and No ill appearing Resp Effort & Inspection: normal respiratory effort Cardio Rate: regular rate Skin General: no rashes or lesions noted Neuro Other: Reports decrease in sensation to light touch from mid calf to his toes that is equal bilaterally. Extrem General: No edema Course Orders Ordered: ED Orders 02/24/24 07:33 Complete Blood Count AUTO DIFF Stat Comprehensive Metabolic Panel Stat Ethanol (ETOH) Stat Lipase Stat Magnesium Stat Thyroid Stimulating Hormone Stat 02/24/24 08:05 Urine Drug Screen, Rapid Stat Discontinued Medications Lorazepam (Lorazepam 2 Mg/Ml Inj) 1 mg IV NOW ONE Stop: 02/24/24 08:05 Last Admin: 02/24/24 08:21 Dose: 1 mg Documented By: Vital Signs Vital signs: Vital Signs - 8 hr 02/24/24 07:00 02/24/24 07:01 02/24/24 07:01 Temperature Pulse Rate 86 83 Respiratory Rate Blood Pressure 122/76 Pulse Oximetry 98 97 Oxygen Delivery Method 02/24/24 07:04 02/24/24 07:33 Temperature 97.8 F Pulse Rate 85 82 Respiratory Rate 18 Blood Pressure 122/76 Pulse Oximetry 97 98 Oxygen Delivery Method Room Air MDM - Extremity (Nontraumatic) Lab Data 02/24/24 07:33 02/24/24 07:33 Labs: Lab Results 02/24/24 Range/Units 07:33 WBC 9.3 (4.5-11.0) X10^3/uL RBC 4.26 L (4.5-5.9) X10^6/uL Hgb 14.8 (13.5-17.5) g/dL Hct 43.2 (41-53) % MCV 101.4 H (80-100) fL MCH 34.8 H (26-34) PG MCHC 34.3 (30-36) % RDW 13.9 (11.6-14.8) % Plt Count 207 (150-400) X10^3/uL Neut % (Auto) 57.7 (50-75) % Lymph % (Auto) 34.6 (25-40) % Walker % (Auto) 5.4 (3-14) % Eos % (Auto) 1.3 L (2-4) % Baso % (Auto) 1.0 (0-2) % Neut # (Auto) 5400 (1803-0125) /uL Lymph # (Auto) 3200 (0929-8575) /uL Walker # (Auto) 500 (0-900) /uL Eos # (Auto) 100 (0-450) /uL Baso # (Auto) 100 (0-100) /uL Sodium 143 (137-145) mmol/L Potassium 3.1 L (3.4-5.1) mmol/L Chloride 107 (98-107) mmol/L Carbon Dioxide 23 (22-32) mmol/L BUN 7 L (9-20) mg/dL Creatinine 0.88 (0.66-1.25) mg/dL Estimated GFR > 60 (>60) mL/min BUN/Creatinine Ratio 8.0 (6-22) Glucose 205 H (70-100) mg/dL Calcium 9.5 (8.4-10.2) mg/dL Magnesium 1.9 (1.6-2.3) mg/dL Total Bilirubin 1.2 (0.2-1.3) mg/dL AST 49 (17-59) IU/L ALT 28 (<50) IU/L Alkaline Phosphatase 89 (38-126) U/L Total Protein 7.3 (6.3-8.2) g/dL Albumin 4.1 (3.5-5.0) g/dL Globulin 3.2 (1.7-4.1) g/dL Albumin/Globulin Ratio 1.3 (1.0-2.8) Lipase 272 (23-300) U/L TSH 0.577 (0.47-4.68) uIU/mL Ethyl Alcohol 356 H ( - 10) mg/dL MDM Narrative Medical decision making narrative: Patient has a history of neuropathy and I suspect that that is what is causing his symptoms today. There was no signs of fracture, no trauma, no signs of infection. He is intoxicated. He does admit to drinking alcohol last evening. No indication for admission to the hospital. No indication to change in his medicines. Provided reassurance to the patient. He did have 1 episode where he became very anxious here in the ER. This improved with the Ativan. Will discharge patient home with instructions to follow up with primary provider. Discharge Plan Departure Patient Disposition: Home Clinical Impression: Neuropathy, Alcohol intoxication Instructions: Peripheral Neuropathy Activity Restrictions/Additional Instructions: Continue to take all of your medications as directed. Recommend that you contact your primary care doctor for a follow-up. No driving for the next 24 hours or in the future if you drink alcohol. Return to the emergency department for new symptoms. Prescriptions: No Action metformin 500 mg tablet 500 mg PO BID Qty: 180 3RF thiamine HCl (vitamin B1) 100 mg tablet 100 mg PO DAILY spironolactone 50 mg tablet 50 mg PO DAILY trazodone 50 mg tablet 50 mg PO ONCE PM gabapentin 300 mg capsule 300 mg PO TID Qty: 90 5RF clobetasol 0.05 % cream 1 applic topical BID Qty: 60 5RF mirtazapine 45 mg tablet 45 mg PO BEDTIME furosemide 40 mg tablet 40 mg PO BID lamotrigine 25 mg tablet 25 mg PO DAILY ferrous sulfate 325 mg (65 mg iron) tablet 325 mg PO DAILY Humulin N NPH U-100 Insulin 100 unit/mL suspension SUBCUT Patient Comments: [NO ORIGINAL SIG] nicotine 21 mg/24 hr patch 24 hour 1 patch topical DAILY propranolol 20 mg tablet 20 mg PO 3XD Xifaxan 550 mg tablet 550 mg PO BID Referrals: Adrian Pedroza MD [Primary Care Provider] - Stand Alone Forms: Patient Portal/API
[2024-02-24 07:33] VITALS: PULSE 82; O2SAT 98
[2024-02-24 07:41] LABS: Add Manual Diff / Slide Review NO; Basophils Absolute Auto 100 /uL (0-100); Eosinophils Absolute Auto 100 /uL (0-450); Eosinophils Percent Auto 1.3 % (2-4); Hematocrit 43.2 % (41-53); Hemoglobin 14.8 g/dL (13.5-17.5); Lymphocytes Absolute Auto 3200 /uL (1100-4500); Lymphocytes Percent Auto 34.6 % (25-40); Mean Corpuscular HGB Conc 34.3 % (30-36); Mean Corpuscular Hemoglobin 34.8 PG (26-34); Mean Corpuscular Volume 101.4 fL (80-100); Monocytes Absolute Auto 500 /uL (0-900); Monocytes Percent Auto 5.4 % (3-14); Neutrophils Absolute Auto 5400 /uL (1500-7000); Neutrophils Percent Auto 57.7 % (50-75); Platelet Count 207 X10^3/uL (150-400); Red Blood Cell Count 4.26 X10^6/uL (4.5-5.9); Red Cell Distribution Width 13.9 % (11.6-14.8); White Blood Cell Count 9.3 X10^3/uL (4.5-11.0)
[2024-02-24 07:59] LABS: Alanine Aminotransferase 28 IU/L (<50); Albumin 4.1 g/dL (3.5-5.0); Albumin Globulin Ratio 1.3 (1.0-2.8); Alkaline Phosphatase 89 U/L (38-126); Aspartate Aminotransferase 49 IU/L (17-59); Bilirubin Total 1.2 mg/dL (0.2-1.3); Blood Urea Nitrogen 7 mg/dL (9-20); Calcium 9.5 mg/dL (8.4-10.2); Carbon Dioxide 23 mmol/L (22-32); Chloride 107 mmol/L (98-107); Estimated Glomerular Filt Rate > 60 mL/min (>60); Globulin 3.2 g/dL (1.7-4.1); Glucose 205 mg/dL (70-100); HEMOLYSIS 15 (0-50); Lipase 272 U/L (23-300); Potassium 3.1 mmol/L (3.4-5.1); Sodium 143 mmol/L (137-145); Total Protein 7.3 g/dL (6.3-8.2)
[2024-02-24] MEDS: LORazepam 2 MG/ML INJ 1 MG IV (08:21)
--- NOTE | 2024-02-24 08:43 | PC.NURSE ---
This RN called lab about add on lab orders placed by provider. Lab states they are aware and will add them on.
[2024-02-24 08:55] LABS: Magnesium 1.9 mg/dL (1.6-2.3)
[2024-02-24 09:02] LABS: Ethanol (ETOH) 356 mg/dL
[2024-02-24 09:26] LABS: Thyroid Stimulating Hormone 0.577 uIU/mL (0.47-4.68)
[2024-02-24 11:03] VITALS: BP 106/76; PULSE 82; RESP 18; O2SAT 97
== END 2024-02-24 11:04 | disposition home or self-care (01) ==
PROVIDERS: Emergency Provider Emergency Medicine; Family Provider Internal Medicine; PCP Internal Medicine
DX: F10.129 Alcohol abuse with intoxication, unspecified (principal); Y90.8 Blood alcohol level of 240 mg/100 ml or more; G62.9 Polyneuropathy, unspecified; Z79.899 Other long term (current) drug therapy
CPT/HCPCS: 36415; 80053; 80320; 83690; 83735; 84443; 85025; 96374; 99284; J2060

== ENCOUNTER → 2025-06-20 13:38 | Outpatient (CLI) | payer OTHER, SELFPAY ==
[2025-06-20 14:57] LABS: Hemoglobin A1C% w Est Avg Glu 5.1 % (4.0-6.0)
[2025-06-20 15:18] LABS: Alanine Aminotransferase 118 IU/L (<50); Albumin 4.4 g/dL (3.5-5.0); Albumin Globulin Ratio 1.5 (1.0-2.8); Alkaline Phosphatase 125 U/L (38-126); Blood Urea Nitrogen 10 mg/dL (9-20); Calcium 8.6 mg/dL (8.4-10.2); Carbon Dioxide 20 mmol/L (22-32); Chloride 106 mmol/L (98-107); Cholesterol 213 mg/dL (140-199); Estimated Glomerular Filt Rate > 60 mL/min (>60); Globulin 3.0 g/dL (1.7-4.1); Glucose 117 mg/dL (70-99); HEMOLYSIS < 15 (0-50); Potassium 3.8 mmol/L (3.4-5.1); Sodium 140 mmol/L (137-145); Total Protein 7.4 g/dL (6.3-8.2); Triglycerides 102 mg/dL (35-150)
[2025-06-20 15:51] LABS: HDL Cholesterol 112 mg/dL (40-60)
== END ==
LOC: LAB 13:42
PROVIDERS: PCP Internal Medicine; Referring Provider Internal Medicine; Visit Provider Internal Medicine
DX: E11.69 Type 2 diabetes mellitus with other specified complication (principal); E78.5 Hyperlipidemia, unspecified; I10 Essential (primary) hypertension
CPT/HCPCS: 36415; 80053; 80061; 83036

== ENCOUNTER 2025-07-29 12:45 | Emergency (ER) | payer OTHER, SELFPAY ==
[2025-07-29] VITALS (11 sets, daily range): BP systolic 106–145; BP diastolic 60–94; PULSE 70–83; RESP 17–19; TEMP 36.6; O2SAT 96–99; BMI 31.5
--- OUTSIDE RECORDS SUMMARY | 2025-07-29 12:47 | XMS_ITS | Clinical Summary ---
Author Organization [facility] Address [address] [place] [address] Care Team Providers Care Service Clerk Name Role Phone Unavailable Primary Care Provider Unavailabl e Allergies Active Allergy Reactions Criticality Noted Date Comments Penicillins 06/03/2023 Medications clonazePAM (KlonoPIN) 1 MG tablet Take 0.5 tablets (0.5 mg total) by mouth 2 (two) times daily before breakfast and bedtime. 3 Active dextroamphetami ne-amphetamine (ADDERALL) 30 mg Tablet Take 1 tablet (30 mg total) by mouth 2 (two) times a day. 3 Active levothyroxine (SYNTHROID, LEVOTHROID) 50 MCG tablet Take 1 tablet (50 mcg total) by mouth once daily. 3 Active lithium (ESKALITH) 300 MG capsule Take 2 capsules (600 mg total) by mouth 2 (two) times a day. 3 Active losartan (COZAAR) 25 MG tablet Take 1 tablet (25 mg total) by mouth once daily. 3 Active metFORMIN 500 MG tablet Take 1 tablet (500 mg total) by mouth 2 (two) times a day. 3 Active spironolactone (ALDACTONE) 50 MG tablet Take 1 tablet (50 mg total) by mouth once daily. 3 Active traZODone (DESYREL) 50 MG tablet Take 1 tablet (50 mg total) by mouth once nightly as needed for sleep. 3 Active amLODIPine (NORVASC) 5 MG tablet Take 1 tablet (5 mg total) by mouth once daily. 3 Active cefdinir (OMNICEF) 300 MG capsule Take 1 capsule (300 mg total) by mouth 2 (two) times a day. 14 capsule Active folic acid (FOLVITE) 1 MG tablet Take 1 tablet (1 mg total) by mouth once daily. 30 tablet Active magnesium oxide (MAG-OX) 400 mg (241.3 mg magnesium) tablet Take 1 tablet (400 mg total) by mouth once daily. 30 tablet 3 Active nicotine (NICODERM CQ) 14 mg/[address] 1 patch onto the skin once daily. 28 patch Active oxyCODONE (ROXICODONE) 5 MG immediate release tablet Take 1 tablet (5 mg total) by mouth every 8 (eight) hours as needed. Max Daily Amount: 15 mg 15 tablet Active thiamine (VITAMIN B-1) 100 mg Tablet tablet Take 1 tablet (100 mg total) by mouth once daily. 30 tablet 3 Active triamcinolone (KENALOG) 0.1 % cream Apply topically 2 (two) times a day. Psoriatic patch 453.6 g 3 Active Active Problems Problem Noted Date Diagnosed Date Infection of parotid gland 06/03/2023 Tobacco abuse 06/03/2023 Leukocytosis 06/03/2023 Hyponatremia 06/03/2023 Parotid abscess Hypothyroidism Hypertension Immunizations Immunization Administration Dates Next Due Influenza Four-QIV IM 6 MO+ ([id number]) 06/04/2023 Social History Tobacco Use Types Packs/Day Years Used Date Smoking Tobacco: Every Day Cigarettes Passive Smoke Exposure: Current Smokeless Tobacco: Never Tobacco Cessation:Ready to Q uit: No; Counseling Given: No Sex and Gender Information Value Date Recorded Sex Assigned at Not on file Legal Sex Male 10:39 PM PDT Gender Identity Not on file Sexual Orientation Not on file Last Filed Vital Signs Vital Sign Reading Time Taken Comments Blood Pressure 155/101 06/06/2023 3:12 PM PDT Pulse 104 06/06/2023 3:12 PM PDT Temperature 36 C (96.8 F) 06/06/2023 3:12 PM PDT Respiratory Rate 20 06/06/2023 3:12 PM PDT Oxygen Saturation 96% 06/06/2023 3:12 PM PDT Inhaled Oxygen Concentration - - Weight 100.9 kg (222 lb 7.1 oz) 06/04/2023 9:00 PM PDT Height 180.3 cm (5' 11) 06/03/2023 3:45 AM PDT Body Mass Index 31.02 06/03/2023 3:45 AM PDT Plan of Treatment Health Maintenance Due Date Last Done Comments Depression Screening (12+) 1992 DTAP/TDAP/TD VACCINES (1 - Tdap) 1999 Tobacco Cessation and Counseling (12+) 08/08/2024 COVID-19 VACCINE (3 - 2024- season) 2025 12/25/2020, 12/04/2020 Influenza Vaccine (#1) 2025 3, 05/26/2022, 09/02/2021, Additional history exists Pneumococcal Vaccine: 0-49 Years Aged Out No longer eligible based on patient's age to complete this topic Insurance [employer] [facility] MEDICAID Advance Directives * Full Code (Latest Code Status on File) Date Activated Date Inactivated Comments 06/03/2023 3:59 AM 06/06/2023 10:31 PM Question Answer Comments This code status was determined by: Patient
--- NOTE | 2025-07-29 14:03 | DI.CT.S_ITS ---
PROCEDURE: CT ABDOMEN PELVIS W CON INDICATIONS: perineal mass TECHNIQUE: After the administration of intravenous contrast, axial sections acquired from the lung bases to the pubic symphysis. Coronal and sagittal reformats were performed. For radiation dose reduction, the following was used: automated exposure control, adjustment of mA and/or kV according to patient size. COMPARISON: CT KUB 01/05/2024. FINDINGS: Image quality: Diagnostic. Lower Chest: No significant findings. ABDOMEN: Liver: No solid mass. Gallbladder: Cholelithiasis. Mild wall thickening and trace pericholecystic fluid. Biliary ducts: No biliary dilation. Pancreas: No ductal dilation. Spleen: Size is within normal limits. Adrenal Glands: No adrenal nodules. Kidneys and Ureters: No hydronephrosis. No solid mass. No complex renal cystic lesion which requires follow up. Stomach and Bowel: Normal colonic caliber, without significant wall thickening. Normal caliber appendix. Peritoneum: No abnormal intraperitoneal fluid. No free air. Ventral Wall: No significant ventral hernia. Abdominal Nodes: No retroperitoneal or mesenteric adenopathy by size criteria. Vessels: Aorta and inferior vena cava are normal in size. PELVIS: Pelvic Organs: There is rim enhancing fluid density surrounding measuring 5.6 x 3.5 by 3.8 cm (2/181, 5/78 in the right perineal space superior to the right testicle. There is surrounding soft tissue stranding. Bladder: No bladder wall thickening, accounting for underdistention. Pelvic Nodes: No enlarged lymph nodes. Miscellaneous: No inguinal hernias are seen. Bones: No aggressive osseous abnormality. IMPRESSION: Right perineal space rim enhancing fluid collection measuring to 5.6 cm concerning for abscess. Cholelithiasis with questionable mild wall thickening and trace pericholecystic fluid. If there is clinical concern for acute cholecystitis, consider further evaluation with ultrasound Approved by: rBianda Billingslye M.D.,Ph.D. on 07/29/2025 at 16:28
--- NOTE | 2025-07-29 14:09 | ED.SKABFB ---
HPI - Skin/Abscess/Foreign Bdy <Jayleen Liriano PA-C - Last Filed: 07/29/25 19:13> General Chief complaint: Skin/Abscess/Foreign Body Stated complaint: painful excised mass behind scrotum Time Seen by Provider: 07/29/25 13:14 Source: patient Mode of arrival: Ambulatory History of Present Illness HPI narrative: 44-year-old male with past medical history bipolar disorder, alcohol use disorder, psoriasis, diabetes presents to the ED with 6 days of perineal swelling, mass. Patient states that he just finished a dose of clindamycin 6 days ago for a dental infection. Patient states that on the day that he finished his antibiotics is when he 1st noticed a painful lump between the anus and the scrotum. The lesion has grown in size since then, patient describes a painful egg size lump in the perineal region. No fever, chills, chest pain, shortness of breath, nausea, vomiting, dysuria, lightheadedness, dizziness, syncope. Patient states that he has diarrhea at baseline, which did not get worse with the clindamycin. Patient had an alcohol use disorder in the past, states he has been sober since June. Patient endorses using marijuana, denies using any other drugs. Related Data Home Medications ?Medication ?Instructions ?Recorded ?Confirmed furosemide 40 mg tablet 40 mg PO BID 02/07/25 06/10/25 Previous Rx's ?Medication ?Instructions ?Recorded clobetasol 0.05 % topical cream 1 applic topical BID #60 grams 05/26/22 spironolactone 50 mg tablet 50 mg PO DAILY #30 tabs 03/20/24 ferrous sulfate 325 mg (65 mg 325 mg PO DAILY #90 tabs 12/06/24 iron) tablet thiamine HCl (vitamin B1) 100 mg 100 mg PO DAILY #90 tabs 12/06/24 tablet gabapentin 800 mg tablet 800 mg PO TID #90 tabs 01/10/25 lamotrigine 25 mg tablet 25 mg PO DAILY #30 tabs 03/11/25 propranolol 20 mg tablet 20 mg PO 3XD #90 tabs 03/12/25 naltrexone 50 mg tablet 50 mg PO DAILY #90 tabs 04/17/25 trazodone 50 mg tablet See Rx Instructions PO ONCE PM PRN 05/27/25 sleep #60 tabs chlordiazepoxide HCl 25 mg capsule 25 mg PO TID PRN alcohol 06/03/25 withdrawal #30 caps nicotine 14 mg/24 hr daily 1 patch transdermal DAILY #28 ea 06/10/25 transdermal patch nicotine 21 mg/24 hr daily 1 patch transdermal DAILY #28 ea 06/10/25 transdermal patch nicotine 7 mg/24 hr daily 1 patch transdermal Q24H #28 ea 06/10/25 transdermal patch semaglutide 0.25 mg or 0.5 mg (2 0.25 mg (0.368 mL) SUBCUT QWEEK #3 06/10/25 mg/3 mL) subcutaneous pen injector mL (Ozempic) rifaximin 550 mg tablet (Xifaxan) 550 mg PO BID #60 tabs 07/16/25 oxycodone-acetaminophen 5 mg-325 1 tab PO Q6H PRN pain #10 tabs 07/29/25 mg tablet (Percocet) sulfamethoxazole 800 1 tab PO Q12H 10 days #20 tabs 07/29/25 mg-trimethoprim 160 mg tablet (Bactrim DS) Allergies Allergy/AdvReac Type Severity Reaction Status Date / Time Penicillins Allergy Unknown Verified 07/29/25 13:04 lithium AdvReac Mild Rash Verified 07/29/25 13:04 Review of Systems <Jayleen Liriano PA-C - Last Filed: 07/29/25 19:13> Constitutional Constitutional: Denies chills, Denies fatigue, Denies fever(s), Denies frequent falls, Denies lethargy and Denies weakness Eyes Eyes: Denies change in vision, Denies eye discharge, Denies irritation and Denies loss of vision ENT Ears, Nose, Mouth, and Throat: Denies change in voice, Denies dizziness, Denies neck pain, Denies sore throat and Denies throat swelling Cardiovascular Cardiovascular: Denies chest pain, Denies irregular heart rhythm, Denies lightheadedness, Denies palpitations, Denies dyspnea, Denies dyspnea on exertion and Denies orthopnea Respiratory Respiratory: Denies cough, Denies dyspnea, Denies dyspnea on exertion and Denies wheezing Gastrointestinal Gastrointestinal: Denies abdominal pain, Denies change in bowel habits, Denies diarrhea, Denies nausea and Denies vomiting Musculoskeletal Musculoskeletal: Denies neck pain and Denies numbness Comments: Painful, perineal egg sized lump Integumentary/Breasts Skin/Breast: Denies pruritus, Denies erythema, Denies rash and Denies wounds Neurologic Neurologic: Denies behavioral changes, Denies confusion, Denies dizziness, Denies frequent falls, Denies loss of vision, Denies numbness and Denies weakness Psychiatric Psychiatric: Denies anxiety, Denies behavioral changes, Denies confusion, Denies depression, Denies homicidal ideation and Denies suicidal ideation Endocrine Endocrine: Denies fatigue, Denies flushing and Denies palpitations Hematologic/Lymphatic Hematologic/Lymphatic: Denies easy bruising Allergic/Immunologic Allergic/Immunologic: Denies urticaria, Denies throat swelling and Denies wheezing Patient History <Jayleen Liriano PA-C - Last Filed: 07/29/25 19:13> Medical History Hepatic encephalopathy Diarrhea Tobacco use disorder Venous (peripheral) insufficiency Polyneuropathy, unspecified DM type 2 with diabetic dyslipidemia Plaque psoriasis (~2017) Alcohol use disorder Obesity (BMI 30.0-34.9) Generalized anxiety disorder Chronic insomnia Essential hypertension Gout ADD (attention 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) Bipolar 1 disorder (~2001) Patient denies medical problems Social History Smoking Status: Current every day smoker Smoking Status: Current every day smoker alcohol intake frequency: 3 or more drinks per day Alcohol type: hard liquor Exam <Jayleen Liriano PA-C - Last Filed: 07/29/25 19:13> Narrative Exam Narrative: Const General:?cooperative, healthy appearing and comfortable [facility] Head:?normal to inspection Ears:?hearing grossly normal bilaterally Nose:?external nose normal Face and sinus:?normal facial exam and sinuses nontender Mouth:?oral mucosae normal Throat:?posterior oropharynx normal Eyes General:?appearance normal, both eyes and all related structures Neck Neck:?normal visual inspection and no lymphadenopathy noted Resp Effort & Inspection:?normal respiratory effort Auscultation:?clear to auscultation bilaterally Cardio Rate:?regular rate Rhythm:?regular rhythm /integumentary There is a significant erythematous, tender mass in the perineal area. The mass is fluctuant and indurated. Significant overlying erythema. Neuro General:?patient alert, patient awake and patient oriented x3 Initial Vital Signs Initial Vital Signs: Vital Signs Temperature 98 F 07/29/25 13:01 Pulse Rate 83 07/29/25 13:01 Respiratory Rate 17 07/29/25 13:01 Blood Pressure 144/90 H 07/29/25 13:01 Pulse Oximetry 99 07/29/25 13:01 Oxygen Delivery Method Room Air 07/29/25 13:01 <Allan Arthur, - Last Filed: 07/29/25 21:59> Initial Vital Signs Initial Vital Signs: Vital Signs Temperature 98 F 07/29/25 13:01 Pulse Rate 83 07/29/25 13:01 Respiratory Rate 17 07/29/25 13:01 Blood Pressure 144/90 H 07/29/25 13:01 Pulse Oximetry 99 07/29/25 13:01 Oxygen Delivery Method Room Air 07/29/25 13:01 Procedures <Jayleen Liriano PA-C - Last Filed: 07/29/25 19:13> Abscess I/D I&D #1: Site: scrotum (perineum) Side (if applicable): right Local Anesthetic: lidocaine 2% and with epi Amount of anesthesia used (mL): 7 Technique: incised with #11 blade Amount of fluid expressed (mL): 25 Irrigation: No Packing used?: iodoform Course <Jayleen Liriano PA-C - Last Filed: 07/29/25 19:13> Orders Ordered: ED Orders 07/29/25 14:00 Chlamydia Gonorrhea PCR -URINE Stat 07/29/25 14:03 CT abdomen pelvis w con Stat 07/29/25 14:12 CBC Auto Diff [Complete Blood Count AUTO DIFF] Stat CMP [Comprehensive Metabolic Panel] Stat CRP [C-Reactive Protein Quant] Stat ESR [Erythrocyte Sedimentation Rate] Stat Lactate (Lactic Acid) Stat Lipase Stat PT [Prothrombin Time INR] Stat PTT [PTT Partial Thromboplastin Mike] Stat 07/29/25 14:30 Blood Culture Stat 07/29/25 14:32 Urinalysis and Microscopic Stat 07/29/25 17:30 Wound Culture and Gram Stain Stat Discontinued Medications Hydromorphone HCl (Hydromorphone 1 Mg/Ml Syringe) 1 mg IV NOW ONE Stop: 07/29/25 17:58 Last Admin: 07/29/25 18:07 Dose: 1 mg Documented By: ANA Piperacillin Sod/Tazobactam (Sod 4.5 gm/ Sodium Chloride) 100 mls @ 200 mls/hr IV NOW ONE Stop: 07/29/25 15:17 Last Infusion: 07/29/25 16:38 Dose: Infused Documented By: Admin: 07/29/25 16:01 Dose: 200 mls/hr Documented By: SHYAM Metronidazole (Flagyl) 500 mg in 100 mls @ 100 mls/hr IV NOW ONE Stop: 07/29/25 16:15 Last Infusion: 07/29/25 17:40 Dose: Infused Documented By: Admin: 07/29/25 16:29 Dose: 100 mls/hr Documented By: ANA Vancomycin HCl/Dextrose (Vancomycin) 1,500 mg in 300 mls @ 200 mls/hr IV NOW ONE Stop: 07/29/25 17:14 Last Infusion: 07/29/25 19:49 Dose: Infused Documented By: Admin: 07/29/25 18:08 Dose: 200 mls/hr Documented By: ANA Lidocaine HCl (Lidocaine 2% Inj Mdv 20ml) 10 ml INJ INTRA-OP ONE Stop: 07/29/25 17:10 Last Admin: 07/29/25 17:54 Dose: Not Given Documented By: ANA Lidocaine/Epinephrine (Lidocaine 2% W/Epi Inj 10 Ml Vial) 10 ml INJ NOW ONE Stop: 07/29/25 17:13 Last Admin: 07/29/25 17:58 Dose: 10 ml Documented By: ANA Morphine Sulfate (Morphine 4 Mg/Ml Inj) 4 mg IV NOW ONE Stop: 07/29/25 14:05 Last Admin: 07/29/25 14:34 Dose: 4 mg Documented By: SHYAM Vital Signs Vital signs: Vital Signs - 8 hr 07/29/25 14:46 07/29/25 15:00 07/29/25 15:00 Pulse Rate 78 73 Respiratory Rate Blood Pressure 137/94 H Pulse Oximetry 96 97 Oxygen Delivery Method 07/29/25 15:30 07/29/25 15:30 07/29/25 16:00 Pulse Rate 78 Respiratory Rate Blood Pressure 139/86 145/85 H Pulse Oximetry 96 Oxygen Delivery Method 07/29/25 16:00 07/29/25 16:30 07/29/25 16:30 Pulse Rate 70 74 Respiratory Rate Blood Pressure 137/69 Pulse Oximetry 96 97 Oxygen Delivery Method 07/29/25 17:00 07/29/25 17:00 07/29/25 17:30 Pulse Rate 81 Respiratory Rate Blood Pressure 140/60 119/64 Pulse Oximetry 96 Oxygen Delivery Method 07/29/25 17:30 07/29/25 18:00 07/29/25 18:00 Pulse Rate 70 79 Respiratory Rate 18 19 Blood Pressure 106/60 Pulse Oximetry 96 96 Oxygen Delivery Method Room Air Room Air 07/29/25 19:51 07/29/25 19:52 07/29/25 19:52 Pulse Rate 71 Respiratory Rate Blood Pressure 126/73 Pulse Oximetry 96 97 Oxygen Delivery Method <Allan Arthur, DO - Last Filed: 07/29/25 21:59> Orders Ordered: ED Orders 07/29/25 14:00 Chlamydia Gonorrhea PCR -URINE Stat 07/29/25 14:03 CT abdomen pelvis w con Stat 07/29/25 14:12 CBC Auto Diff [Complete Blood Count AUTO DIFF] Stat CMP [Comprehensive Metabolic Panel] Stat CRP [C-Reactive Protein Quant] Stat ESR [Erythrocyte Sedimentation Rate] Stat Lactate (Lactic Acid) Stat Lipase Stat PT [Prothrombin Time INR] Stat PTT [PTT Partial Thromboplastin Mike] Stat 07/29/25 14:30 Blood Culture Stat 07/29/25 14:32 Urinalysis and Microscopic Stat 07/29/25 17:30 Wound Culture and Gram Stain Stat Discontinued Medications Hydromorphone HCl (Hydromorphone 1 Mg/Ml Syringe) 1 mg IV NOW ONE Stop: 07/29/25 17:58 Last Admin: 07/29/25 18:07 Dose: 1 mg Documented By: ANA Piperacillin Sod/Tazobactam (Sod 4.5 gm/ Sodium Chloride) 100 mls @ 200 mls/hr IV NOW ONE Stop: 07/29/25 15:17 Last Infusion: 07/29/25 16:38 Dose: Infused Documented By: Admin: 07/29/25 16:01 Dose: 200 mls/hr Documented By: SHYAM Metronidazole (Flagyl) 500 mg in 100 mls @ 100 mls/hr IV NOW ONE Stop: 07/29/25 16:15 Last Infusion: 07/29/25 17:40 Dose: Infused Documented By: Admin: 07/29/25 16:29 Dose: 100 mls/hr Documented By: ANA Vancomycin HCl/Dextrose (Vancomycin) 1,500 mg in 300 mls @ 200 mls/hr IV NOW ONE Stop: 07/29/25 17:14 Last Infusion: 07/29/25 19:49 Dose: Infused Documented By: Admin: 07/29/25 18:08 Dose: 200 mls/hr Documented By: ANA Lidocaine HCl (Lidocaine 2% Inj Mdv 20ml) 10 ml INJ INTRA-OP ONE Stop: 07/29/25 17:10 Last Admin: 07/29/25 17:54 Dose: Not Given Documented By: ANA Lidocaine/Epinephrine (Lidocaine 2% W/Epi Inj 10 Ml Vial) 10 ml INJ NOW ONE Stop: 07/29/25 17:13 Last Admin: 07/29/25 17:58 Dose: 10 ml Documented By: ANA Morphine Sulfate (Morphine 4 Mg/Ml Inj) 4 mg IV NOW ONE Stop: 07/29/25 14:05 Last Admin: 07/29/25 14:34 Dose: 4 mg Documented By: SHYAM Vital Signs Vital signs: Vital Signs - 8 hr 07/29/25 14:46 07/29/25 15:00 07/29/25 15:00 Pulse Rate 78 73 Respiratory Rate Blood Pressure 137/94 H Pulse Oximetry 96 97 Oxygen Delivery Method 07/29/25 15:30 07/29/25 15:30 07/29/25 16:00 Pulse Rate 78 Respiratory Rate Blood Pressure 139/86 145/85 H Pulse Oximetry 96 Oxygen Delivery Method 07/29/25 16:00 07/29/25 16:30 07/29/25 16:30 Pulse Rate 70 74 Respiratory Rate Blood Pressure 137/69 Pulse Oximetry 96 97 Oxygen Delivery Method 07/29/25 17:00 07/29/25 17:00 07/29/25 17:30 Pulse Rate 81 Respiratory Rate Blood Pressure 140/60 119/64 Pulse Oximetry 96 Oxygen Delivery Method 07/29/25 17:30 07/29/25 18:00 07/29/25 18:00 Pulse Rate 70 79 Respiratory Rate 18 19 Blood Pressure 106/60 Pulse Oximetry 96 96 Oxygen Delivery Method Room Air Room Air 07/29/25 19:51 07/29/25 19:52 07/29/25 19:52 Pulse Rate 71 Respiratory Rate Blood Pressure 126/73 Pulse Oximetry 96 97 Oxygen Delivery Method MDM - Skin/Abscess/Foreign Bdy <Hyma FELICIA Liriano - Last Filed: 07/29/25 19:13> Lab Data 07/29/25 14:12 07/29/25 14:12 Labs: Lab Results 07/29/25 07/29/25 07/29/25 Range/Units 14:00 14:12 14:32 WBC 12.8 H (4.5-11.0) X10^3/uL RBC 4.01 L (4.5-5.9) X10^6/uL Hgb 13.1 L (13.5-17.5) g/dL Hct 38.1 L (41-53) % MCV 94.9 (80-100) fL MCH 32.8 (26-34) PG MCHC 34.5 (30-36) % RDW 13.0 (11.6-14.8) % Plt Count 178 (150-400) X10^3/uL Neut % (Auto) 81.9 H (50-75) % Lymph % (Auto) 8.8 L (25-40) % Pershing % (Auto) 5.5 (3-14) % Eos % (Auto) 3.4 (2-4) % Baso % (Auto) 0.4 (0-2) % Neut # (Auto) 59988 H (4346-6242) /uL Lymph # (Auto) 1100 (8871-5801) /uL Pershing # (Auto) 700 (0-900) /uL Eos # (Auto) 400 (0-450) /uL Baso # (Auto) 100 (0-100) /uL ESR 39 H (0-15) MM/HR PT 11.7 (9.4-12.5) SECONDS INR 1.0 (0.9-1.3) APTT 31 (25.1-36.5) SECONDS Sodium 139 (137-145) mmol/L Potassium 3.9 (3.4-5.1) mmol/L Chloride 106 (98-107) mmol/L Carbon Dioxide 25 (22-32) mmol/L BUN 17 (9-20) mg/dL Creatinine 1.08 (0.66-1.25) mg/dL Estimated GFR > 60 (>60) mL/min BUN/Creatinine Ratio 15.7 (6-22) Glucose 108 H (70-99) mg/dL Lactate 1.0 (0.7-2.1) mmol/L Calcium 8.7 (8.4-10.2) mg/dL Total Bilirubin 1.1 (0.2-1.3) mg/dL AST 34 (17-59) IU/L ALT 40 (<50) IU/L Alkaline Phosphatase 111 (38-126) U/L C-Reactive Protein 6.6 H (<1.0) mg/dL Total Protein 7.3 (6.3-8.2) g/dL Albumin 4.2 (3.5-5.0) g/dL Globulin 3.1 (1.7-4.1) g/dL Albumin/Globulin Ratio 1.4 (1.0-2.8) Lipase 171 (23-300) U/L Urine Color Yellow Urine Appearance Clear Urine pH 6.5 (4.5-8.0) Ur Specific [place] 1.010 (1.000-1.035) Urine Protein Trace H (Negative) Urine Glucose (UA) Negative (Negative) g/dL Urine Ketones Negative (NEGATIVE) Urine Occult Blood 3+ H (Negative) Urine Nitrate Negative (Negative) Urine Bilirubin Negative (NEGATIVE) Urine Urobilinogen 0.2 (0.2) E.U./dL Ur Leukocyte Esterase Negative (NEGATIVE) Urine RBC 5-10/hpf H (0-5/HPF) Urine WBC 1-5/hpf (0-5/HPF) Ur Squamous Epith Cells None seen (0-5/HPF) Urine Bacteria None seen (None) Ur Culture Indicated? Cult not indicated Vol Urine Centrifuged 10ml (spun) Ur Chlamydia DNA (PCR) Not detected N gonorrhoeae DNA (PCR) Not detected MDM Narrative Medical decision making narrative: 44-year-old male with past medical history bipolar disorder, alcohol use disorder, psoriasis, diabetes presents to the ED with 6 days of perineal swelling, mass. Concern for cellulitis versus abscess versus necrotizing infection versus Eduarda gangrene versus other. Will obtain labs, ESR, CRP, lactate, CT abdomen pelvis, blood cultures, UA, urine GC. WBC mildly elevated to 12.8. CRP elevated to 6.6. ESR elevated to 39. All other labs unremarkable. Physical exam is significant for an abscess versus cellulitis in the perineal region. Will start antibiotics. CT scan shows a rim enhancing fluid density surrounding measuring 5.6 x 3.5 x 3.8 cm in the right peroneal space superior to the right testicle. There is surrounding soft tissue stranding. This is concerning for an abscess. There is an incidental finding of cholelithiasis with mild wall thickening and trace pericholecystic fluid, however no clinical correlation to patient's symptoms. Urologist Dr. Mera most consulted, he recommends an incision and drainage with packing, given that the abscess is superficial. He will see patient in clinic. Abscess was successfully incised and drained, with significant volume of pus evacuated, and packing applied. Patient tolerated the procedure well. Patient was given IV pain medication. Patient discharged home on p.o. antibiotics and pain medication. ED return precautions discussed with patient. Patient verbalized understanding. Medical records reviewed: Yes <Allan Arthur, DO - Last Filed: 07/29/25 21:59> Lab Data Labs: Lab Results 07/29/25 07/29/25 07/29/25 Range/Units 14:00 14:12 14:32 WBC 12.8 H (4.5-11.0) X10^3/uL RBC 4.01 L (4.5-5.9) X10^6/uL Hgb 13.1 L (13.5-17.5) g/dL Hct 38.1 L (41-53) % MCV 94.9 (80-100) fL MCH 32.8 (26-34) PG MCHC 34.5 (30-36) % RDW 13.0 (11.6-14.8) % Plt Count 178 (150-400) X10^3/uL Neut % (Auto) 81.9 H (50-75) % Lymph % (Auto) 8.8 L (25-40) % Pershing % (Auto) 5.5 (3-14) % Eos % (Auto) 3.4 (2-4) % Baso % (Auto) 0.4 (0-2) % Neut # (Auto) 12174 H (5354-8199) /uL Lymph # (Auto) 1100 (6490-2791) /uL [place] # (Auto) 700 (0-900) /uL Eos # (Auto) 400 (0-450) /uL Baso # (Auto) 100 (0-100) /uL ESR 39 H (0-15) MM/HR PT 11.7 (9.4-12.5) SECONDS INR 1.0 (0.9-1.3) APTT 31 (25.1-36.5) SECONDS Sodium 139 (137-145) mmol/L Potassium 3.9 (3.4-5.1) mmol/L Chloride 106 (98-107) mmol/L Carbon Dioxide 25 (22-32) mmol/L BUN 17 (9-20) mg/dL Creatinine 1.08 (0.66-1.25) mg/dL Estimated GFR > 60 (>60) mL/min BUN/Creatinine Ratio 15.7 (6-22) Glucose 108 H (70-99) mg/dL Lactate 1.0 (0.7-2.1) mmol/L Calcium 8.7 (8.4-10.2) mg/dL Total Bilirubin 1.1 (0.2-1.3) mg/dL AST 34 (17-59) IU/L ALT 40 (<50) IU/L Alkaline Phosphatase 111 (38-126) U/L C-Reactive Protein 6.6 H (<1.0) mg/dL Total Protein 7.3 (6.3-8.2) g/dL Albumin 4.2 (3.5-5.0) g/dL Globulin 3.1 (1.7-4.1) g/dL Albumin/Globulin Ratio 1.4 (1.0-2.8) Lipase 171 (23-300) U/L Urine Color Yellow Urine Appearance Clear Urine pH 6.5 (4.5-8.0) Ur Specific [place] 1.010 (1.000-1.035) Urine Protein Trace H (Negative) Urine Glucose (UA) Negative (Negative) g/dL Urine Ketones Negative (NEGATIVE) Urine Occult Blood 3+ H (Negative) Urine Nitrate Negative (Negative) Urine Bilirubin Negative (NEGATIVE) Urine Urobilinogen 0.2 (0.2) E.U./dL Ur Leukocyte Esterase Negative (NEGATIVE) Urine RBC 5-10/hpf H (0-5/HPF) Urine WBC 1-5/hpf (0-5/HPF) Ur Squamous Epith Cells None seen (0-5/HPF) Urine Bacteria None seen (None) Ur Culture Indicated? Cult not indicated Vol Urine Centrifuged 10ml (spun) Ur Chlamydia DNA (PCR) Not detected N gonorrhoeae DNA (PCR) Not detected MDM Narrative Medical decision making narrative: 44-year-old male with past medical history bipolar disorder, alcohol use disorder, psoriasis, diabetes presents to the ED with 6 days of perineal swelling, mass. Concern for cellulitis versus abscess versus necrotizing infection versus Eduarda gangrene versus other. Will obtain labs, ESR, CRP, lactate, CT abdomen pelvis, blood cultures, UA, urine GC. WBC mildly elevated to 12.8. CRP elevated to 6.6. ESR elevated to 39. All other labs unremarkable. Physical exam is significant for an abscess versus cellulitis in the perineal region. Will start antibiotics. CT scan shows a rim enhancing fluid density surrounding measuring 5.6 x 3.5 x 3.8 cm in the right peroneal space superior to the right testicle. There is surrounding soft tissue stranding. This is concerning for an abscess. There is an incidental finding of cholelithiasis with mild wall thickening and trace pericholecystic fluid, however no clinical correlation to patient's symptoms. Urologist Dr. Mera most consulted, he recommends an incision and drainage with packing, given that the abscess is superficial. He will see patient in clinic. Abscess was successfully incised and drained, with significant volume of pus evacuated, and packing applied. Patient tolerated the procedure well. Patient was given IV pain medication. Patient discharged home on p.o. antibiotics and pain medication. ED return precautions discussed with patient. Patient verbalized understanding. Medical records reviewed: Yes Co-sign statement: I was available for consultation during this patient's emergency department visit. This chart is being signed by myself for administrative purposes only. I do not have direct contact with this patient during this visit. They were seen independently by the APC. Discharge Plan Departure Patient Disposition: Home Clinical Impression: Abscess of perineum Instructions: DI for Skin Abscess Activity Restrictions/Additional Instructions: You were evaluated in the emergency department today for a peroneal wound. The abscess was incised and drained and packing put in there for it to continue draining. You were given some IV antibiotics in the emergency department today, as well as IV pain medicines. You are being sent home with a prescription for oral antibiotics to continue taking for the next several days. Please follow-up with urologist Dr. Mera by calling his office at [phone]. He has been made aware of your diagnosis and would like to see you in clinic. Return to the ED if you have worsening symptoms. Prescriptions: New sulfamethoxazole-trimethoprim [Bactrim DS] 800-160 mg tablet 1 tab PO Q12H 10 Days Qty: 20 0RF oxycodone-acetaminophen [Percocet] 5-325 mg tablet 1 tab PO Q6H PRN (Reason: pain) Qty: 10 0RF No Action gabapentin 800 mg tablet 800 mg PO TID Qty: 90 5RF lamotrigine 25 mg tablet 25 mg PO DAILY Qty: 30 5RF propranolol 20 mg tablet 20 mg PO 3XD Qty: 90 5RF naltrexone 50 mg tablet 50 mg PO DAILY Qty: 90 3RF trazodone 50 mg tablet See Rx Instructions PO ONCE PM PRN (Reason: sleep) Qty: 60 5RF Rx Instructions: orally once in the evening PRN; 1-2 tablets nightly as needed for sleep chlordiazepoxide HCl 25 mg capsule 25 mg PO TID PRN (Reason: alcohol withdrawal) Qty: 30 0RF Xifaxan 550 mg tablet 550 mg PO BID Qty: 60 5RF spironolactone 50 mg tablet 50 mg PO DAILY Qty: 30 5RF ferrous sulfate 325 mg (65 mg iron) tablet 325 mg PO DAILY Qty: 90 3RF thiamine HCl (vitamin B1) 100 mg tablet 100 mg PO DAILY Qty: 90 3RF clobetasol 0.05 % cream 1 applic topical BID Qty: 60 5RF furosemide 40 mg tablet 40 mg PO BID nicotine 21 mg/24 hr patch 24 hour 1 patch transdermal DAILY Qty: 28 1RF nicotine 14 mg/24 hr patch 24 hour 1 patch transdermal DAILY Qty: 28 0RF nicotine 7 mg/24 hr patch 24 hour 1 patch transdermal Q24H Qty: 28 0RF Ozempic 0.25 mg or 0.5 mg (2 mg/3 mL) pen injector 0.25 mg SUBCUT QWEEK Qty: 3 5RF Rx Instructions: for 4 weeks Referrals: Adrian Pedroza MD [Primary Care Provider, Internal Medicine] Stand Alone Forms: Patient Portal/API
[2025-07-29 14:23] LABS: Add Manual Diff / Slide Review NO; Hematocrit 38.1 % (41-53); Hemoglobin 13.1 g/dL (13.5-17.5); Lymphocytes Absolute Auto 1100 /uL (1100-4500); Mean Corpuscular HGB Conc 34.5 % (30-36); Mean Corpuscular Hemoglobin 32.8 PG (26-34); Mean Corpuscular Volume 94.9 fL (80-100); Platelet Count 178 X10^3/uL (150-400)
[2025-07-29] MEDS: MORPHINE 4 MG/ML INJ IV (14:34)
[2025-07-29 14:35] LABS: Alanine Aminotransferase 40 IU/L (<50); Albumin 4.2 g/dL (3.5-5.0); Albumin Globulin Ratio 1.4 (1.0-2.8); Alkaline Phosphatase 111 U/L (38-126); Blood Urea Nitrogen 17 mg/dL (9-20); Calcium 8.7 mg/dL (8.4-10.2); Carbon Dioxide 25 mmol/L (22-32); Chloride 106 mmol/L (98-107); Estimated Glomerular Filt Rate > 60 mL/min (>60); Globulin 3.1 g/dL (1.7-4.1); Glucose 108 mg/dL (70-99); HEMOLYSIS < 15 (0-50); Lipase 171 U/L (23-300); Potassium 3.9 mmol/L (3.4-5.1); Sodium 139 mmol/L (137-145); Total Protein 7.3 g/dL (6.3-8.2)
[2025-07-29 14:36] LABS: Lactate (Lactic Acid) 1.0 mmol/L (0.7-2.1)
[2025-07-29 14:53] LABS: INR 1.0 (0.9-1.3); Prothrombin Time 11.7 SECONDS (9.4-12.5)
[2025-07-29 14:56] LABS: PTT Partial Thromboplastin Tim 31 SECONDS (25.1-36.5)
[2025-07-29] MEDS: PIPERACILLIN/TAZO 4.5 GM in SODIUM CHLORIDE 0.9% 100 ML IV (16:01)
[2025-07-29 16:20] LABS: Urine N gonorrhoeae NOT DETECTED
[2025-07-29 16:23] LABS: Urine Chlamydia NOT DETECTED
[2025-07-29] MEDS: metroNIDAZOLE 500 MG/100 ML PIGGYBACK 100 MG IV (16:29)
[2025-07-29 16:38] LABS: Appearance Urine UA CLEAR; Bilirubin Urine UA NEGATIVE (NEGATIVE); Color Urine UA YELLOW; Glucose Urine UA NEGATIVE (Negative); Ketones Urine UA NEGATIVE (NEGATIVE); Leukocyte Esterase Urine UA NEGATIVE (NEGATIVE); Nitrite Urine UA NEGATIVE (Negative); Occult Blood Urine UA 3+ (Negative); Protein Urine UA TRACE (Negative); Specific Gravity Urine UA 1.010 (1.000-1.035); Urobilinogen Urine UA 0.2 E.U./dL (0.2); pH Urine UA 6.5 (4.5-8.0)
[2025-07-29 16:54] LABS: Culture Indicated Urine Cult Not Indicated
[2025-07-29] MEDS: LIDOCAINE 2% W/EPI INJ 10 ML VIAL INJ (17:58)
[2025-07-29] MEDS: VANCOMYCIN 1,500 MG/300 ML PIGGYBACK 200 MG IV (18:08)
== END 2025-07-29 20:02 | disposition home or self-care (01) ==
PROVIDERS: Emergency Provider Student in an Organized Health Care Education/Training Program; PCP Internal Medicine
DX: L02.215 Cutaneous abscess of perineum (principal); E11.9 Type 2 diabetes mellitus without complications
CPT/HCPCS: 36415; 74177; 80053; 81001; 83605; 83690; 85025; 85610; 85651; 85730; 86140; 87040; 87070; 87075; 87147; 87205; 87491; 87591; 96365; 96366; 96367; 96375; 99283; 99284; J1171; J2272; J2543; J3375; J7050; Q9967